=== PATIENT | female | born 1985 | race Caucasian/White ===

== ENCOUNTER 2019-07-24 18:47 | Emergency (ER) | payer OTHER, SELFPAY ==
[2019-07-24 19:11] VITALS: BP 134/90; PULSE 84; RESP 14; TEMP 36.7; O2SAT 100
--- NOTE | 2019-07-24 19:26 | ED.GENADULT ---
HPI - General Adult General Chief complaint: Urogenital-Female Stated complaint: frequent urination Time Seen by Provider: 07/24/19 19:26 Source: patient and RN notes reviewed Mode of arrival: ambulatory Limitations: no limitations History of Present Illness HPI narrative: This is a 33 years old female presented office for evaluation of urinary frequency and urgency 20 minutes after she got influenza vaccines. Onset yesterday.Symptom has not subsided at all today. Denies hives, feeling ill, nauseous or vomiting. She never had a flu shot in the past.She took Azo for her symptoms with no relief. Related Data Home Medications Medication Instructions Recorded Confirmed clonazepam [Klonopin] 0.5 mg PO HS 07/24/19 07/24/19 phentermine 15 mg PO DAILY 07/24/19 07/24/19 Allergies Allergy/AdvReac Type Severity Reaction Status Date / Time metoclopramide Allergy Severe swelling Verified 07/24/19 19:20 in hands and face Review of Systems Review of Systems: Narrative: CONSTITUTIONAL: Denies fever ENT: Denies congestion CARDIOVASCULAR: Denies chest pain RESPIRATORY: Denies cough GASTROINTESTINAL: Denies abdominal pain, nausea, vomiting, diarrhea. GENITOURINARY: Denies discharge. Reports urinary frequency and urgency. denies hematuria or dysuria SKIN: Denies rash MUSCULOSKELETAL: Denies acute back pain NEUROLOGIC: Denies numbness, or focal weakness. PMFSH Comments At time of signature, I agree with nursing past medical, surgical, social and family history. There is no relevant family history pertinent to the presenting complaint. Exam Narrative: Exam Narrative: GENERAL: This is a well-nourished, well-developed patient, in no apparent distress. THROAT: Mucous membranes moist, posterior pharynx clear. NECK: Neck supple, non-tender without lymphadenopathy, masses or thyromegaly. CARDIOVASCULAR: Regular rate and rhythm without murmurs, gallops, or rubs. RESPIRATORY: Clear to auscultation. Breath sounds equal bilaterally. No wheezes, rales, or rhonchi. GASTROINTESTINAL: Abdomen soft, non-tender, nondistended. Bowel sounds are active. No hepato-splenomegaly, or palpable masses. No guarding. SKIN: warm, intact with no suspicious lesions or rash, good texture and turgor. NEURO: awake, alert, and oriented to person, place and time. There were no obvious focal neurologic abnormalities. Steady gait BACK:No flank tenderness. [place] Coma Scale Eye Opening: Spontaneous 4 [place] Coma Scale Motor: Obeys Commands 6 [place] Coma Scale Verbal: Oriented 5 Course Vital Signs Vital signs: Vital Signs Temperature 98.1 F 07/24/19 19:11 Pulse Rate 84 07/24/19 19:11 Respiratory Rate 14 07/24/19 19:11 Blood Pressure 134/90 07/24/19 19:11 Pulse Oximetry 100 07/24/19 19:11 Temperature 98.1 F 07/24/19 19:11 Pulse Rate 84 07/24/19 19:11 Respiratory Rate 14 07/24/19 19:11 Blood Pressure 134/90 07/24/19 19:11 Pulse Oximetry 100 07/24/19 19:11 Medical Decision Making MDM Narrative Medical decision making narrative: Urine dipstick is unreliable due to patient Azo, however I will go ahead and cover her with antibiotic for possible UTI based on patient's symptoms. I also put patient on Flomax to see if it helps reduce her urinary frequency and urgency. Differential Diagnosis Differential Diagnosis: Cystitis, Nephrolithiasis, Nephritis,vaginitis, pyelonephritis Vital Signs Vital Signs: Vital Signs Temperature 98.1 F 07/24/19 19:11 Pulse Rate 84 07/24/19 19:11 Respiratory Rate 14 07/24/19 19:11 Blood Pressure 134/90 07/24/19 19:11 Pulse Oximetry 100 07/24/19 19:11 Temperature 98.1 F 07/24/19 19:11 Pulse Rate 84 07/24/19 19:11 Respiratory Rate 14 07/24/19 19:11 Blood Pressure 134/90 07/24/19 19:11 Pulse Oximetry 100 07/24/19 19:11 Lab Data Lab results reviewed: Yes I reviewed the patient's lab results. Labs: Urine Glucose Trace *
== END 2019-07-24 19:47 | disposition home or self-care (01) ==
PROVIDERS: Emergency Provider Nurse Practitioner; PCP Family Medicine
DX: R35.0 Frequency of micturition (principal); R03.0 Elevated blood-pressure reading, without diagnosis of hypertension; F41.9 Anxiety disorder, unspecified
CPT/HCPCS: 81003; 87086; 99213; G0463

== ENCOUNTER 2019-12-05 07:32 | Outpatient (CLI) | payer OTHER, SELFPAY ==
[2019-12-05 08:18] LABS: Hematocrit 39.9 % (37.0-47.0); Hemoglobin 13.2 g/dL (12.0-15.0); Mean Corpuscular HGB Conc 33.1 g/dl (32-36); Mean Corpuscular Hemoglobin 28.5 pg (26-34); Mean Corpuscular Volume 86.2 fl (80-100); Mean Platelet Volume 11.3 fl (7.4-10.4); Platelet Count Result 220 k/mm3 (150-375); Red Blood Count 4.63 M/mm3 (4.2-5.4); Red Cell Distribution Width 13.2 % (11.5-14.5); White Blood Count 5.9 K/mm3 (4.5-10.0)
[2019-12-05 08:30] LABS: Alanine Aminotransferase 33 U/L (4-35); Albumin Level 4.3 g/dL (3.5-5.1); Alkaline Phosphatase 65 U/L (38-126); Aspartate Amino Transferase 28 U/L (14-36); Bilirubin,Total 0.4 mg/dL (0.2-1.3); Blood Urea Nitrogen 15 mg/dL (7-17); Carbon Dioxide 29 mmol/L (22-30); Chloride 103 mmol/L (98-107); Cholesterol 204 mg/dL (0-200); Estimated Glomerular Filt Rate > 60; Glucose 110 mg/dL (65-105); HDL Direct 68 mg/dL; Potassium 4.2 mmol/L (3.4-5.0); Sodium 135 mmol/L (137-145); Triglycerides 97 mg/dL (<150)
[2019-12-05 08:41] LABS: LDL Cholesterol Direct 105 mg/dL
[2019-12-05 09:00] LABS: Free T4 Free Thyroxine 1.05 ng/mL (0.78-2.19)
== END 2019-12-05 07:33 | disposition home or self-care (01) ==
PROVIDERS: PCP Family Medicine; Visit Provider Physician Assistant
DX: R53.83 Other fatigue (principal); Z13.1 Encounter for screening for diabetes mellitus; Z13.220 Encounter for screening for lipoid disorders
CPT/HCPCS: 36415; 80053; 80061; 84439; 84443; 85027

== ENCOUNTER 2020-02-25 11:55 | Emergency (ER) | payer OTHER, SELFPAY ==
[2020-02-25 12:02] VITALS: BP 126/84; PULSE 69; RESP 18; TEMP 37.4; O2SAT 100
--- NOTE | 2020-02-25 12:08 | PC.NURSE ---
PT DECLINES ICE FOR COMFORT
--- NOTE | 2020-02-25 13:04 | ED.UPPEXIN ---
HPI - Extremity Injury (Upper) General Chief Complaint: Extremity Injury, Upper Stated Complaint: Right fingernails lifted Time Seen by Provider: 02/25/20 13:04 Source: patient and RN notes reviewed Mode of arrival: ambulatory Limitations: no limitations History of Present Illness HPI narrative: 34 year old female who presents to [facility] care with complaints of injury to her right 3rd and 4th fingernails. Patient states that she was playing in river with her kids and she picked up a bucket of water and threw it causing her finger nails on right 3rd and 4th fingers to bend back. Patient has dipped nails and her right 4th fingernail broke off to the edge of her fingertip and 3rd right fingernail has some of nail avulsed but not as far back as the 4th nail. She states pain to her fingers, rates her discomfort as 6/10 and throbbing with some stated swelling to her fingers reported. MD complaint: injury to: right and finger (nails to right 3rd and 4th fingers) Onset (ago): day(s) (occurred yesterday) Other injuries: none Handedness: right Place: outdoors Severity: moderate Severity scale (1-10): 6 Relieving factors: none Exacerbating factors: other (palpation) Context: injury Associated symptoms: denies other symptoms Treatments prior to arrival: NSAIDS Related Data Home Medications Medication Instructions Recorded Confirmed sertraline 50 mg PO DAILY 02/25/20 02/25/20 Allergies Allergy/AdvReac Type Severity Reaction Status Date / Time metoclopramide Allergy Severe swelling Verified 02/28/20 12:25 in hands and face Review of Systems Review of Systems: Narrative: CONSTITUTIONAL: Denies fever, chills, or sweats. EYES: Denies visual changes, redness, or discharge. ENT: Denies rhinorrhea, congestion, sore throat, or otalgia. CARDIOVASCULAR: Denies chest pain, palpitations, or edema. RESPIRATORY: Denies cough or dyspnea. GASTROINTESTINAL: Denies abdominal pain, nausea, vomiting, or diarrhea. GENITOURINARY: Denies dysuria or hematuria. SKIN: Denies rash or itching. Patient has avulsed fingernails right 3rd and 4th fingers with pain, no bleeding noted. MUSCULOSKELETAL: Denies back pain, joint pain, or myalgia. NEUROLOGIC: Denies headache, numbness, or weakness. PSYCHIATRIC: Denies anxiety or depression. All systems reviewed & are unremarkable except as noted in HPI and below PMFSH Past Medical History Medical History (Updated 02/29/20 @ 09:17 by Suzie Santacruz NP) Anxiety and depression Bipolar 2 disorder Surgical History Surgical History (Updated 02/29/20 @ 08:28 by Suzie Santacruz NP) Previous section S/P wisdom tooth extraction Family History Family History (Updated 02/29/20 @ 08:29 by Suzie Santacruz NP) Grandparent Diabetes mellitus Hypertension Social History Social History (Updated 02/29/20 @ 08:30 by Suzie Santacruz NP) Smoking status: Never smoker Living arrangements: with family Gender identity (if verbalized by the patient): Female Comments At time of signature, agree with nursing past medical, surgical, social and family history. There is no relevant family history pertinent to the presenting complaint Exam Narrative: Exam Narrative: GENERAL: Well-appearing, well-nourished, and in no acute distress. HEAD: Normocephalic, atraumatic. EYES: PERRLA and EOMI. ENT: Nares clear, no rhinorrhea or epistaxis. Mucous membranes moist. NECK: Supple. CHEST: Clear to auscultation. No respiratory distress.SAO2 100% on room air HEART: Regular rate and rhythm. No murmur heard. Normal peripheral pulses. ABDOMEN: Soft, nontender, nondistended, normal active bowel sounds. EXTREMITIES: Normal range of motion. No edema. SKIN: Warm, dry, no rash, Nail avulsion to right 3rd and 4th finger nails with 4th nail broken back to edge of fingertip with red tissue noted no bleeding. 3rd nail avulsion noted but minimal and not as far back. Patient voices pain to both fingers distally. NEURO:
== END 2020-02-25 13:25 | disposition home or self-care (01) ==
PROVIDERS: Emergency Provider Registered Nurse; PCP Family Medicine
DX: S69.91XA Unspecified injury of right wrist, hand and finger(s), initial encounter (principal); X58.XXXA Exposure to other specified factors, initial encounter
CPT/HCPCS: 29130; 99213; G0463

== ENCOUNTER 2020-03-19 12:04 | Outpatient (CLI) | payer OTHER, SELFPAY ==
[2020-03-19 12:28] LABS: Hemoglobin A1C 5.2 % (<5.7)
[2020-03-19 12:34] LABS: Alanine Aminotransferase 33 U/L (4-35); Albumin Level 4.3 g/dL (3.5-5.1); Alkaline Phosphatase 68 U/L (38-126); Anion Gap 8 mmol/L (8-16); Aspartate Amino Transferase 32 U/L (14-36); Bilirubin,Total 0.4 mg/dL (0.2-1.3); Blood Urea Nitrogen 15 mg/dL (7-17); Calcium 9.4 mg/dL (8.4-10.2); Carbon Dioxide 29 mmol/L (22-30); Chloride 102 mmol/L (98-107); Estimated Glomerular Filt Rate > 60; Glucose 99 mg/dL (65-105); Potassium 4.3 mmol/L (3.4-5.0); Sodium 139 mmol/L (137-145)
== END 2020-03-19 12:05 | disposition home or self-care (01) ==
PROVIDERS: PCP Family Medicine; Visit Provider Family Medicine
DX: R73.03 Prediabetes (principal)
CPT/HCPCS: 36415; 80053; 83036

== ENCOUNTER 2020-03-26 17:48 | Outpatient (CLI) | payer OTHER, SELFPAY ==
--- NOTE | ~2020-03-26 | XR_ITS ---
EXAMINATION: XR ankle LT min 3V DATE: 03/26/2020 18:10 INDICATION: Medial left ankle pain 2 days post running. TECHNIQUE: Anteroposterior, oblique, mortise, and lateral views of the left ankle were obtained. COMPARISON: None. FINDINGS: Alignment is normal. No fracture. Joint spaces are well maintained. Bone islands at the base of the first metatarsal and at the posterior calcaneus. The soft tissues are unremarkable no definitive ankl e joint effusion.. IMPRESSION: 1. A couple benign bone islands. Otherwise unremarkable left ankle radiographs.. Reviewed, dictated and finalized at location A. IMPRESSION: 1. A couple benign bone islands. Otherwise unremarkable left ankle radiographs. .
== END 2020-03-26 17:49 | disposition home or self-care (01) ==
PROVIDERS: PCP Family Medicine; Visit Provider Family Medicine
DX: M25.579 Pain in unspecified ankle and joints of unspecified foot (principal); M89.9 Disorder of bone, unspecified
CPT/HCPCS: 73610

== ENCOUNTER → 2020-05-07 09:47 | Outpatient (CLI) | payer OTHER, SELFPAY ==
--- NOTE | ~2020-05-07 | XR_ITS ---
XR foot RT min 3V DATE: 05/07/2020 10:07 INDICATION: Fell off of steps sideways. Anterior and lateral pain and swelling of third through fifth digits TECHNIQUE: 4 views COMPARISON: 01/06/2019 right foot FINDINGS: No recent fracture or dislocation, periosteal reaction or bone destruction is detected. IMPRESSION: No recent fracture Reviewed, dictated and finalized at location B. FILER IMPRESSION: No recent fracture
== END ==
PROVIDERS: PCP Family Medicine; Visit Provider Family Medicine
DX: S99.929A Unspecified injury of unspecified foot, initial encounter (principal)
CPT/HCPCS: 73630

== ENCOUNTER 2020-05-27 13:43 | Outpatient (CLI) | payer OTHER, SELFPAY ==
[2020-05-27 14:07] LABS: Basophils Percent Auto 0.5 % (0.2-1.2); Eosinophils Absolute Auto 0.1 K/mm3 (0-0.3); Eosinophils Percent Auto 1.4 % (0-4.4); Hematocrit 37.6 % (37.0-47.0); Hemoglobin 12.4 g/dL (12.0-15.0); Immature Granulocyte Absolute 0.02 K/mm3 (0.00-0.031); Immature Granulocyte Percent A 0.3 % (0-0.5); Lymphocytes Absolute Auto 1.65 K/mm3 (0.9-3.2); Mean Corpuscular Hemoglobin 28.3 pg (26-34); Mean Corpuscular Volume 85.8 fl (80-100); Mean Platelet Volume 11.2 fl (7.4-10.4); Monocytes Absolute Auto 0.5 K/mm3 (0.1-0.6); Monocytes Percent Auto 8.2 % (2.6-8.5); Neutrophils Absolute Auto 4.3 K/mm3 (1.3-6.7); Neutrophils Percent Auto 64.6 % (45.5-73.1); Platelet Count Result 245 k/mm3 (150-375); Red Blood Count 4.38 M/mm3 (4.2-5.4); Red Cell Distribution Width 12.6 % (11.5-14.5); White Blood Count 6.6 K/mm3 (4.5-10.0)
[2020-05-27 14:20] LABS: Rheumatoid Factor < 8.6 IU/ML (<12)
[2020-05-27 14:21] LABS: CRP 0.6 mg/dL (<1.0)
[2020-05-27 14:45] LABS: Erythrocyte Sedimentation Rate 14 mm/hr (0-20)
[2020-05-29 22:13] LABS: Anti Cyclic Citrullinated Pept <16 Units (<20)
== END 2020-05-27 13:44 | disposition home or self-care (01) ==
PROVIDERS: PCP Family Medicine; Visit Provider Orthopaedic Surgery
DX: M06.9 Rheumatoid arthritis, unspecified (principal)
CPT/HCPCS: 36415; 85025; 85652; 86038; 86140; 86200; 86430

== ENCOUNTER 2020-06-03 16:52 | Outpatient (CLI) | payer OTHER, SELFPAY ==
[2020-06-03 17:09] LABS: Add Urine Microscopic? YES; Appearance Urine Clear (Clear); Bacteria Urine Trace /hpf; Bilirubin Urine Negative (Negative); Blood Urine 1+ (Negative); Color Urine Yellow (Yellow); Glucose Urine UA Negative (Negative); Ketones Urine Negative (Negative); Leukocyte Esterase Ur Negative LEU/UL (Negative); Mucus Urine Rare /lpf; Nitrate Urine Negative (Negative); Protein Urine Negative (Negative); RBC Urine 0-2 /hpf (0-2); Specific Grav Ur 1.025 (1.001-1.035); Squamous Epithelial Cell Urine Moderate /hpf (Few); Urobilinogen Urine Negative mg/dL (<2.0); WBC Urine 0-3 /hpf
== END 2020-06-03 16:53 | disposition home or self-care (01) ==
LOC: ANHLAB 16:54
PROVIDERS: PCP Family Medicine; Visit Provider Family Medicine
DX: R35.0 Frequency of micturition (principal)
CPT/HCPCS: 81001

== ENCOUNTER 2020-06-12 07:21 | Outpatient (CLI) | payer OTHER, SELFPAY ==
[2020-06-12 08:07] LABS: Alanine Aminotransferase 28 U/L (4-35); Albumin Level 4.1 g/dL (3.5-5.1); Alkaline Phosphatase 59 U/L (38-126); Anion Gap 7 mmol/L (8-16); Aspartate Amino Transferase 25 U/L (14-36); Bilirubin,Total 0.4 mg/dL (0.2-1.3); Blood Urea Nitrogen 14 mg/dL (7-17); Carbon Dioxide 27 mmol/L (22-30); Chloride 104 mmol/L (98-107); Estimated Glomerular Filt Rate > 60; Glucose 100 mg/dL (65-105); Sodium 138 mmol/L (137-145)
== END 2020-06-12 07:22 | disposition home or self-care (01) ==
PROVIDERS: PCP Family Medicine; Visit Provider Physician Assistant
DX: R73.9 Hyperglycemia, unspecified (principal)
CPT/HCPCS: 36415; 80053; 83036

== ENCOUNTER 2020-09-15 13:49 | Outpatient (CLI) | payer OTHER, SELFPAY ==
[2020-09-15 15:08] LABS: Iron 63 ug/dL (37-170)
[2020-09-15 15:17] LABS: Percent Iron Saturation 21 % (20-50)
[2020-09-15 15:26] LABS: Free T4 Free Thyroxine 0.87 ng/mL (0.78-2.19)
[2020-09-15 15:37] LABS: Folic Acid 10.3 ng/mL (2.76->20)
[2020-09-15 15:52] LABS: Erythrocyte Sedimentation Rate 8 mm/hr (0-20)
[2020-09-15 15:53] LABS: Vitamin D 25 Hydroxy 54.3 ng/mL
== END 2020-09-15 13:50 | disposition home or self-care (01) ==
PROVIDERS: PCP Physician Assistant; Visit Provider Physician Assistant
DX: R53.83 Other fatigue (principal)
CPT/HCPCS: 36415; 82306; 82607; 82746; 83540; 83550; 84439; 84443; 85652

== ENCOUNTER 2020-09-30 14:29 | Outpatient (CLI) | payer OTHER, SELFPAY ==
[2020-09-30 15:23] LABS: Influenza Control Positive
== END 2020-09-30 14:30 | disposition home or self-care (01) ==
PROVIDERS: PCP Physician Assistant; Visit Provider Physician Assistant
DX: R50.9 Fever, unspecified (principal); J02.9 Acute pharyngitis, unspecified
CPT/HCPCS: 87081; 87804; 87880

== ENCOUNTER 2020-10-30 11:45 | Outpatient (CLI) | payer OTHER, SELFPAY ==
--- NOTE | ~2020-10-30 | CT_ITS ---
EXAMINATION: CT sinus wo con DATE: 10/30/2020 12:18 INDICATION: Congestion and chronic sinusitis for 3 months TECHNIQUE: Computed tomography (CT) of the paranasal sinuses was performed without contrast. Iterativ e reconstruction technique was employed. Exam dose: 273.54 mGy-cm total exam DLP. COMPARISON: None FINDINGS: There is leftward deviation of the nasal septum. There is asymmetric prominence of the right middle and inferior nasal turbinates. Bilateral intralamellar cell of middle nasal turbinates. Ostiomeatal units are patent bilaterally. There is minimal development of the frontal sinuses. The ethmoid air cells, maxillary and sphenoid si nuses are clear. Normal development and aeration of the mastoid air cells bilaterally. Middle and inner ear apparatus appear normal bilaterally. IMPRESSION: Leftward deviation of nasal septum Asymmetric enlargement of right middle and inferior nasal turbinates Bilateral intralamellar cell of middle nasal turbinates Patent paranasal sinuses, ostiomeatal units and mastoid air cells Reviewed, dictated and finalized at Location A. Reviewed, dictated and finalized at location A.
== END 2020-10-30 11:46 | disposition home or self-care (01) ==
PROVIDERS: PCP Physician Assistant; Visit Provider Allergy & Immunology
DX: J31.0 Chronic rhinitis (principal); J34.2 Deviated nasal septum; J34.3 Hypertrophy of nasal turbinates
CPT/HCPCS: 70486

== ENCOUNTER → 2020-11-12 12:07 | Outpatient (CLI) | payer OTHER, SELFPAY ==
--- NOTE | ~2020-11-12 | US_ITS ---
EXAMINATION: US pelvic complete w TV DATE: 11/12/2020 12:35 INDICATION: History of cysts. Polycystic ovarian syndrome. Comparison:No prior studies for comparison. TECHNIQUE: Multiple transabdominal and endovaginal sonographic images of the pelvis performed. FINDINGS: The uterus measures 10 x 4.4 x 5.8 cm. The endometrial complex measures 9 mm. The right ovary measures 2.6 x 2 x 2.3 cm and the left ovary is not visualized. Normal Doppler signal in the right ovary. There is a questionable hypoechoic structure adjacent to the right ovary, althou gh this is obscured by overlying bowel. There is no free fluid in the pelvis. There are no abnormal masses seen on either side. IMPRESSION: 1. Possible hypoechoic mass adjacent to the right ovary, although this could represent normal bowel c ontent. Consider correlation with CT abdomen and pelvis. Otherwise, unremarkable pelvic ultrasound. Reviewed, dictated and finalized at location A. IMPRESSION: 1. Possible hypoechoic mass adjacent to the right ovary, although this could re present normal bowel content. Consider correlation with CT abdomen and pelvis. Otherwise, unremarkable pelvic ultrasound.
== END ==
PROVIDERS: Visit Provider Obstetrics & Gynecology
DX: N83.209 Unspecified ovarian cyst, unspecified side (principal)
CPT/HCPCS: 76830; 76856

== ENCOUNTER 2021-04-01 11:46 | Outpatient (CLI) | payer OTHER, SELFPAY ==
--- NOTE | ~2021-04-01 | XR_ITS ---
XR hip BI 2V w AP pelvis DATE: 04/01/2021 12:22 INDICATION: Hip pain TECHNIQUE: AP pelvis. AP and lateral views of each hip COMPARISON: None FINDINGS: No pelvic fracture. The pubic symphysis and sacroiliac joints are intact. No fracture or dislocation, avascular necrosis or bone destruction of either hip. Hip joint spaces ar e symmetric and relatively preserved. IMPRESSION: No significant abnormality Reviewed, dictated and finalized at location B. IMPRESSION: No significant abnormality
--- NOTE | ~2021-04-01 | XR_ITS ---
XR lumbar spine 6V w bending DATE: 04/01/2021 12:22 INDICATION: Low back pain TECHNIQUE: AP, lateral, coned lateral lumbosacral views. Flexion and extension lateral views. COMPARISON: None FINDINGS: Normal alignment of lumbar spine. No instability on flexion or extension. Lumbar and lumbos acral interspaces are well preserved. No fracture or bone destruction, spondylolysis or spondylolisth esis. The lumbar pedicles are intact. The sacroiliac joints are normal. IMPRESSION: Negative Reviewed, dictated and finalized at location B. IMPRESSION: Negative
== END 2021-04-01 11:47 | disposition home or self-care (01) ==
LOC: ANHIMG 11:52
PROVIDERS: PCP Physician Assistant; Visit Provider Physician Assistant
DX: M25.559 Pain in unspecified hip (principal); M54.50 Low back pain, unspecified
CPT/HCPCS: 72114; 73521

== ENCOUNTER 2021-05-03 11:14 | Emergency (ER) | payer OTHER, SELFPAY ==
[2021-05-03 11:20] VITALS: BP 132/95; PULSE 93; RESP 16; TEMP 35.8; O2SAT 99
--- NOTE | 2021-05-03 12:24 | ED.GENADULT ---
HPI - General Adult General Chief complaint: Urogenital-Female Stated complaint: right flank pain Time Seen by Provider: 05/03/21 12:14 Source: RN notes reviewed History of Present Illness HPI narrative: Patient presents emergency department from home for right flank pain. Patient states symptoms began approximately 4 days ago. Pain is located in the right flank and radiates around to the right lower abdomen described as sharp and stabbing in nature and patient states that even anything touching the overlying skin is painful. States is associated nausea. She denies any fevers or chills chest pain shortness of breath vomiting diarrhea or any other symptoms. States that she did have a very small patch of erythema occur on his right side of the abdomen starting yesterday patient states that she was seen at [facility] approximately 4 days ago and at that time had blood work and a CT scan done the CT showed no acute process the patient did bring a copy of that CT scan with her lab results were within normal limits the patient was sent home on Bactrim for possible UTI as well as Toradol and then her primary care physician had called in [place] for her with her last dose of [place] at 3 AM Related Data Allergies Allergy/AdvReac Type Severity Reaction Status Date / Time metoclopramide Allergy Severe swelling Verified 03/16/21 08:34 in hands and face clavulanic acid AdvReac Mild Nausea Verified 03/16/21 08:34 methylprednisolone AdvReac Mild Insomnia Verified 03/16/21 08:34 [From Medrol] Review of Systems Review of Systems: Gen.: Denies fevers or chills ENT: Denies congestion Respiratory: Denies shortness of breath or cough CV: Denies chest pain or palpitations GI: See HPI denies burning, urgency, frequency or hematuria Musculoskeletal: Denies back pain or muscle pain Neuro: Denies numbness, tingling, weakness or focal weakness Skin: Denies rash Except as documented, all other systems reviewed and negative [facility] Past Medical History Medical History Anxiety Anxiety and depression Bipolar 2 disorder Chronic headaches GERD (gastroesophageal reflux disease) Hallux valgus of right foot Light headedness Rheumatoid arthritis involving ankle Surgical History Surgical History Previous section x2, 2007,2009 S/P wisdom tooth extraction Family History Family History Grandparent Diabetes mellitus Hypertension Mother Family history of rheumatoid arthritis Father Family history of coronary artery disease, Onset Age: 47 Patient's father is Grandparent Family history of type 2 diabetes mellitus Social History Social History Smoking status: Never smoker Gender identity (if verbalized by the patient): Female Exam Narrative: APPEARANCE: No acute distress, nontoxic, resting in bed HEENT: Normocephalic, atraumatic, OMM RESPIRATORY: No respiratory distress, clear to auscultation bilaterally with no rhonchi wheezing or rales CARDIOVASCULAR: RRR s murmur ABDOMINAL: Soft nondistended tender to palpation in the right upper and lower quadrant no tenderness left upper and left lower quadrant, mild right flank tenderness no rebound or guarding tenderness over the skin in the region of the dermatome from right flank around to right abdomen of T10 MUSCULOSKELETAl: Moves all extremities. No clubbing, cyanosis or edema. NEURO: Awake and alert. Following commands, speech normal, no focal deficits SKIN:: Warm, dry. In the right lateral abdomen in the same dermatome as the patient's pain there is a patch of erythema no definitive vesicles at this time PSYCHIATRIC: Normal affect/mood Course Course Emergency Course: Discussed with patient results of workup and diagnosi
[2021-05-03 12:25] LABS: Add Urine Microscopic? YES; Appearance Urine Cloudy (Clear); Bacteria Urine 4+ /hpf; Bilirubin Urine Negative (Negative); Blood Urine 1+ (Negative); Color Urine Yellow (Yellow); Glucose Urine UA Negative (Negative); Ketones Urine Negative (Negative); Leukocyte Esterase Ur Negative LEU/UL (Negative); Mucus Urine Rare /lpf; Nitrate Urine Negative (Negative); Protein Urine Negative (Negative); RBC Urine 0-2 /hpf (0-2); Specific Grav Ur 1.015 (1.001-1.035); Squamous Epithelial Cell Urine Many /hpf (Few); Urobilinogen Urine Negative mg/dL (<2.0); WBC Urine 0-3 /hpf
[2021-05-03] MEDS: ONDANSETRON INJ 4 MG/2 ML VIAL IV PUSH (12:47)
[2021-05-03] MEDS: MORPHINE SULFATE (*CRX) 4 MG/ML INJ IV PUSH (12:47)
[2021-05-03] MEDS: SODIUM CHLORIDE 0.9% IV 1,000 ML 999 ML IV CONT (12:48)
[2021-05-03 12:51] LABS: Basophils Percent Auto 0.5 % (0.2-1.2); Eosinophils Absolute Auto 0.1 K/mm3 (0-0.3); Eosinophils Percent Auto 1.2 % (0-4.4); Hematocrit 39.7 % (37.0-47.0); Hemoglobin 13.3 g/dL (12.0-15.0); Immature Granulocyte Absolute 0.01 K/mm3 (0.00-0.031); Immature Granulocyte Percent A 0.2 % (0-0.5); Lymphocytes Absolute Auto 1.53 K/mm3 (0.9-3.2); Lymphocytes Percent Auto 26.5 % (18.3-44.2); Mean Corpuscular HGB Conc 33.5 g/dl (32-36); Mean Corpuscular Hemoglobin 28.8 pg (26-34); Mean Corpuscular Volume 85.9 fl (80-100); Mean Platelet Volume 11.1 fl (7.4-10.4); Monocytes Absolute Auto 0.5 K/mm3 (0.1-0.6); Monocytes Percent Auto 7.8 % (2.6-8.5); Neutrophils Absolute Auto 3.7 K/mm3 (1.3-6.7); Neutrophils Percent Auto 63.8 % (45.5-73.1); Platelet Count Result 218 k/mm3 (150-375); Red Blood Count 4.62 M/mm3 (4.2-5.4); Red Cell Distribution Width 12.7 % (11.5-14.5); White Blood Count 5.8 K/mm3 (4.5-10.0)
[2021-05-03 12:55] VITALS: BP 133/85; PULSE 76; RESP 16; O2SAT 98
[2021-05-03 13:01] VITALS: BP 140/85; PULSE 70; RESP 16; O2SAT 98
[2021-05-03 13:02] LABS: Alanine Aminotransferase 27 U/L (4-35); Albumin Level 4.4 g/dL (3.5-5.1); Alkaline Phosphatase 68 U/L (38-126); Anion Gap 9 mmol/L (8-16); Aspartate Amino Transferase 26 U/L (14-36); Bilirubin,Total 0.4 mg/dL (0.2-1.3); Blood Urea Nitrogen 13 mg/dL (7-17); Calcium 9.1 mg/dL (8.4-10.2); Carbon Dioxide 24 mmol/L (22-30); Chloride 104 mmol/L (98-107); Estimated CRCL calculation 91 ml/min; Estimated Glomerular Filt Rate > 60; Glucose 100 mg/dL (65-110); Lipase 57 U/L (23-300); Potassium 4.1 mmol/L (3.4-5.0); Sodium 137 mmol/L (137-145)
[2021-05-03] MEDS: valACYclovir HCL 500 MG TABLET 1000 MG PO (13:36)
[2021-05-03 13:45] VITALS: BP 121/75; PULSE 75; RESP 18; O2SAT 100
== END 2021-05-03 13:45 | disposition home or self-care (01) ==
PROVIDERS: Emergency Medicine; Emergency Provider Emergency Medicine; PCP Physician Assistant
DX: B02.9 Zoster without complications (principal); F41.9 Anxiety disorder, unspecified; F31.81 Bipolar II disorder; M06.9 Rheumatoid arthritis, unspecified
CPT/HCPCS: 36415; 80053; 81001; 81025; 83690; 85025; 96361; 96374; 96375; 99284; A9270; J2270; J2405; J7030

== ENCOUNTER 2021-08-01 07:08 | Outpatient (CLI) | payer OTHER, SELFPAY ==
[2021-08-01 07:36] LABS: Basophils Percent Auto 0.4 % (0.2-1.2); Eosinophils Absolute Auto 0.2 K/mm3 (0-0.3); Eosinophils Percent Auto 2.7 % (0-4.4); Hematocrit 38.2 % (37.0-47.0); Hemoglobin 12.4 g/dL (12.0-15.0); Immature Granulocyte Absolute 0.01 K/mm3 (0.00-0.031); Immature Granulocyte Percent A 0.2 % (0-0.5); Lymphocytes Absolute Auto 1.46 K/mm3 (0.9-3.2); Lymphocytes Percent Auto 26.7 % (18.3-44.2); Mean Corpuscular HGB Conc 32.5 g/dl (32-36); Mean Corpuscular Hemoglobin 28.8 pg (26-34); Mean Corpuscular Volume 88.8 fl (80-100); Mean Platelet Volume 10.8 fl (7.4-10.4); Monocytes Absolute Auto 0.5 K/mm3 (0.1-0.6); Monocytes Percent Auto 8.2 % (2.6-8.5); Neutrophils Absolute Auto 3.4 K/mm3 (1.3-6.7); Neutrophils Percent Auto 61.8 % (45.5-73.1); Platelet Count Result 185 k/mm3 (150-375); Red Cell Distribution Width 13.5 % (11.5-14.5); White Blood Count 5.5 K/mm3 (4.5-10.0)
[2021-08-01 07:48] LABS: Alanine Aminotransferase 53 U/L (4-35); Albumin Level 3.9 g/dL (3.5-5.1); Alkaline Phosphatase 67 U/L (38-126); Anion Gap 1 mmol/L (8-16); Aspartate Amino Transferase 52 U/L (14-36); Bilirubin,Total 0.5 mg/dL (0.2-1.3); Blood Urea Nitrogen 16 mg/dL (7-17); Calcium 8.9 mg/dL (8.4-10.2); Carbon Dioxide 27 mmol/L (22-30); Chloride 104 mmol/L (98-107); Estimated Glomerular Filt Rate > 60; Glucose 104 mg/dL (65-110); Potassium 3.7 mmol/L (3.4-5.0); Sodium 132 mmol/L (137-145)
[2021-08-01 07:50] LABS: Hemoglobin A1C 5.1 % (<5.7)
[2021-08-01 08:13] LABS: Vitamin D 25 Hydroxy 40.4 ng/mL
[2021-08-01 11:51] LABS: Iron 65 ug/dL (37-170)
[2021-08-01 12:00] LABS: Percent Iron Saturation 21 % (20-50)
[2021-08-01 12:09] LABS: Free T4 Free Thyroxine 1.01 ng/mL (0.78-2.19)
[2021-08-04 12:30] LABS: Insulin Level Total 6.8 uIU/mL (<=19.6); Thyroid Peroxidase Antibodies <1 IU/mL (<9)
[2021-08-04 17:56] LABS: DHEA-Sulfate 279 mcg/dL (23-266)
[2021-08-05 06:53] LABS: LH 13.7 mIU/mL (***); Progesterone 0.5 ng/mL (***); Prolactin 15.3 ng/mL (***); Triiodothyronine T3 Free 2.9 pg/mL (2.3-4.2)
[2021-08-05 14:18] LABS: Testosterone Free 4.7 pg/mL (0.1-6.4); Testosterone Total 82 ng/dL (2-45)
[2021-08-09 20:51] LABS: Estradiol, Ultrasensitive 56 pg/mL
== END 2021-08-01 07:09 | disposition home or self-care (01) ==
PROVIDERS: Internal Medicine Endocrinology, Diabetes & Metabolism; PCP Physician Assistant
DX: R53.83 Other fatigue (principal); N92.6 Irregular menstruation, unspecified; R73.03 Prediabetes
CPT/HCPCS: 36415; 80053; 82306; 82607; 82627; 82670; 82728; 82746; 83001; 83002; 83036; 83525; 83540; 83550; 84144; 84146; 84402; 84403; 84439; 84443; 84481; 85025; 86376

== ENCOUNTER 2021-08-04 10:58 | Outpatient (CLI) | payer OTHER, SELFPAY ==
--- NOTE | ~2021-08-04 | US_ITS ---
EXAMINATION: US thyroid DATE: 08/04/2021 11:38 INDICATION: Nontoxic goiter TECHNIQUE: Multiple ultrasound images of the thyroid were obtained. COMPARISON: None. FINDINGS: The right thyroid lobe measures 5.7 x 1.6 x 1.6 cm. The left thyroid lobe measures 5.6 x 1.8 x 1.3 c m. 5 mm solid wider than tall hypoechoic nodule with smooth margins and without echogenic foci. (TI- RADS 4, moderately suspicious , FNA if >=1.5 cm, annual followup is >=1 cm) at the inferior right thy roid. No other thyroid nodules identified. There is normal echotexture, echogenicity and vascular jazmin w throughout the thyroid gland. IMPRESSION: 1. 5 mm TI RADS 4 right thyroid nodule which remains below threshold for either biopsy or follow-up. Reviewed, dictated and finalized at location A. 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
== END 2021-08-04 10:59 | disposition home or self-care (01) ==
LOC: ANHIMG 11:02
PROVIDERS: PCP Physician Assistant; Visit Provider Internal Medicine Endocrinology, Diabetes & Metabolism
DX: E04.9 Nontoxic goiter, unspecified (principal)
CPT/HCPCS: 76536

== ENCOUNTER 2021-08-29 07:56 | Outpatient (CLI) | payer OTHER, SELFPAY ==
[2021-08-29 11:03] LABS: Cortisol Random 1.56 ug/dL
== END 2021-08-29 07:57 | disposition home or self-care (01) ==
PROVIDERS: Internal Medicine Endocrinology, Diabetes & Metabolism; PCP Physician Assistant
DX: R63.5 Abnormal weight gain (principal)
CPT/HCPCS: 36415; 82533

== ENCOUNTER 2021-09-04 07:41 | Outpatient (CLI) | payer OTHER, SELFPAY ==
[2021-09-04 09:23] LABS: Cortisol Random 7.63 ug/dL
[2021-09-09 14:43] LABS: Adrenocorticotropic Hormone 14 pg/mL (6-50)
== END 2021-09-04 07:42 | disposition home or self-care (01) ==
PROVIDERS: PCP Physician Assistant
DX: E24.9 Cushing's syndrome, unspecified (principal)
CPT/HCPCS: 36415; 82024; 82533

== ENCOUNTER → 2021-09-05 00:40 | Outpatient (CLI) | payer OTHER, SELFPAY ==
[2021-09-05 11:34] LABS: SARS-CoV-2 RNA PCR Negative
== END ==
PROVIDERS: PCP Physician Assistant; Visit Provider Plastic Surgery
DX: Z01.812 Encounter for preprocedural laboratory examination (principal); Z20.822 Contact with and (suspected) exposure to COVID-19
CPT/HCPCS: C9803; U0003; U0005

== ENCOUNTER 2021-09-05 08:25 | Outpatient (CLI) | payer OTHER, SELFPAY | END 2021-09-05 08:26 | disposition home or self-care (01) | PROVIDERS: PCP Physician Assistant | DX: E24.9 Cushing's syndrome, unspecified (principal) | CPT/HCPCS: 82530 ==

== ENCOUNTER 2021-09-07 09:13 | Outpatient (CLI) | payer OTHER, SELFPAY ==
[2021-09-15 19:30] LABS: Cortisol, Saliva <0.03 mcg/dL
[2021-09-15 19:30] LABS: Cortisol, Saliva 0.06 mcg/dL
== END 2021-09-07 09:14 | disposition home or self-care (01) ==
LOC: ANHLAB 09:23
PROVIDERS: PCP Physician Assistant
DX: E24.9 Cushing's syndrome, unspecified (principal)
CPT/HCPCS: 82530

== ENCOUNTER 2021-09-09 01:31 | Day surgery (SDC) | payer OTHER, SELFPAY ==
[2021-08-31 15:22] VITALS: BMI 36.5
--- NOTE | 2021-08-31 15:31 | PC.NURSE ---
Report to the Outpatient Waiting Room, entrance under the green pavilion located off [facility], at time __0600 on date __09/09/2021 . OR Time: _0730 . - You and your visitor will be asked a series of questions to screen for COVID 19 for your protection. - A mask is required within the hospital. Preoperative COVID Testing Requirements: No COVID Test needed if: (proof is required; if not received patient will have Rapid Test prior to entry) - Patient has received COVID Vaccine at least 14 days prior to procedure date or - Patient has positive COVID test result within last 90 days of surgery date. COVID Test needed if above criteria is not met If not COVID vaccinated a COVID test must be conducted within 72 hours of surgery and patient is asked to isolate self from time of testing until procedure. You will go to the [facility] for your COVID testing. The [facility] is located at the corner of [address] [facility]. COVID TEST 09/05/2021 @ 0925 You will only be called if COVID results are positive and your surgeon may reschedule your elective surgery date. Patients may have clear liquids (water, carbonated beverages, clear teas, apple juice) until 3 hours prior to surgery with a maximum of 20 ounces. - No food from midnight until time of surgery - Infants may have breast milk until 4 hours before surgery, infant formula 6 hours prior to surgery. - Children will be allowed to drink immediately following surgery. If applicable, please bring a bottle or sippy cup to assist with drinking. Juice, water, soda, and popsicles are readily available. For infants on formula, please bring formula the day of surgery. Pacifiers are allowed. Take the following medications with a SIP of water the morning of surgery: __NONE__(TAKE HS NORMAL ON 09/08/21) Medications to discontinue per physician Date to take last dose Please no make-up, nail yakut, hairspray, perfume, deodorant, or body powder the day of surgery. No jewelry (including any body piercings) or valuables the day of surgery, leave them at home. Please take a shower or bath the night before, or the morning of, surgery with an antibacterial soap. Wear comfortable, loose fitting clothing. Children are encouraged to wear pajamas. - Jewelry must be removed prior to entering the operating room. Rings and piercings that are not removed may be cut off. - The hospital will not accept responsibility for valuables. - Please leave all valuables, including medications, at home the day of surgery. If you are going home after surgery, a licensed horse and wagon driver must drive you home. - NO public transportation without another adult. - We recommend that an adult stay with you for 24 hours following discharge. - We also recommend that you do not drive, make important decision, drink alcoholic beverages, or take any drugs that were not prescribed by your health care provider for at least 24 hours after your discharge time. For Pediatric surgeries, we recommend two adults accompany the child home (only one inside the building at this time). One visitor will be allowed to accompany the patient into the hospital. Patients visitor will be instructed to remain with patient at all times or leave the building. We will allow the visitor to come back to the postoperative area when patient is ready. Follow any additional instructions given to you from your surgeon. Telephone instructions given to ___patient and asked if any additional questions and then verbalized understanding. Patient advised to call surgeon office or pre surgery nurse liaison [phone] if any additional questions.
[2021-09-09 05:59] VITALS: BP 138/85; PULSE 103; RESP 20; TEMP 36.3; O2SAT 100
[2021-09-09] MEDS: LACTATED RINGERS 1,000 ML 30 ML IV CONT (06:25)
--- NOTE | 2021-09-09 07:07 | WPDANESEPPF ---
Anes - Initial Pre Proc Eval Procedure: Operation Date: 09/09/21 07:30 Proposed Procedures p Excison of Left Dorsal Wrist Ganglion Cyst - Agustin Thomason MD Date/Time: 09/09/21 07:07 Surgeon: Agustin Thomason MD Pre Op Diagnosis: left wrist ganglion cyst Patient Data Age: 35 Gender: F Height: 1.66 m Weight: 101.05 kg Allergies Allergy/AdvReac Type Severity Reaction Status Date / Time metoclopramide Allergy Severe swelling Verified 09/09/21 06:03 in hands and face clavulanic acid AdvReac Mild Nausea Verified 09/09/21 06:03 Home Medications Medication Instructions Recorded Confirmed Type bupropion HCl 300 mg 24 hr tablet, 300 mg PO QAM #90 tablet 08/12/21 09/09/21 Rx extended release clonazepam 0.5 mg tablet 0.5 mg PO DAILY #60 tablet 08/14/21 09/09/21 Rx semaglutide 0.25 mg SUBCUT WEEKLY 08/17/21 09/09/21 History diphenoxylate-atropine 2.5 2 tablet PO QID PRN #40 tablet 08/19/21 09/09/21 Rx mg-0.025 mg tablet azelastine 1 spray INTRANASAL Q12H PRN 08/31/21 09/09/21 History cyclobenzaprine 10 mg tablet 10 mg PO .QHS PRN #30 tablet 08/31/21 09/09/21 Rx Patient hx anesthesia problems: post op nausea/vomiting Family hx anesthesia problems: none Results Review: All pre-operative results and documents have been reviewed as part of the pre-operative evaluation. COUNT INCLUDES THE [facility] Past Medical History Medical History Anxiety Anxiety and depression Bipolar 2 disorder Chronic headaches GERD (gastroesophageal reflux disease) Hallux valgus of right foot Light headedness Rheumatoid arthritis involving ankle Surgical History Surgical History Previous section x2, 2007,2009 S/P wisdom tooth extraction Family History Family History Grandparent Diabetes mellitus Hypertension Mother Family history of rheumatoid arthritis Father Family history of coronary artery disease, Onset Age: 47 Patient's father is Grandparent Family history of type 2 diabetes mellitus Social History Social History Smoking status: Never smoker Second hand tobacco smoke exposure: No Alcohol intake: never Substance use: never Living arrangements: with family Gender identity (if verbalized by the patient): Female 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ns: No Anes - Eval Final PreProcedure Day of Procedure 09/09/21 07:07 Patient weight: obese Heart: regular rate and rhythm Lungs: clear to auscultation Airway: Mallampati scale class II Neurological: alert and oriented Last oral intake: >/= 8 hours ASA classification: III Emergent: no Anesthetic plan: proceed Anesthesia type and monitoring: general GIVS and standard monitoring Other findings: no decadron Results Review: All pre-operative results and documents have been reviewed as part of the pre-operative evaluation. Informed Consent: The patient's anesthetic plan and its attendant risks and benefits were discussed with the patient/family/POA. Questions were solicited and answers provided to the satisfaction of the patient/family/POA.
[2021-09-09] MEDS: FAMOTIDINE 20 MG/2 ML VIAL IV PUSH (07:13)
[2021-09-09] MEDS: SCOPOLAMINE 1.5 MG PATCH TRANSDERM (07:16)
--- NOTE | 2021-09-09 07:56 | SUR.PREOP ---
0600-PT STATES SINCE INTERVIEW IS BEING EVALUATED FOR CUSHINGS AND IS NOT TO HAVE ANY STEROIDS. UNABLE TO ENTER STEROIDS IN ALLERGY/ADVERSE REACTION AREA OF EMR. NOTED ON SBAR AND WILL INFORM ROOM STAFF. 0710-DR. HARO AWARE OF ABOVE. 0720-ANILA WARNER RN CAKE MAKER AWARE OF ABOVE. 0735-PT AND AWARE DR. MEI DELAYS ARRIVAL ~25-30 .
--- NOTE | 2021-09-09 08:03 | WPDHPUPDATE1 ---
History and Physical Update Update Date/Time: 09/09/21 08:03 History and Physical has been reviewed, including an updated exam of the patient. There are NO changes in the patient's condition. Risks, benefits, and alternatives have been discussed and questions answered. Patient agrees to proceed with procedure.
--- NOTE | 2021-09-09 08:04 | SUR.PREOP ---
0800-DR. MEI AWARE OF CUSHINGS EVALUATION AND INABILITY TO HAVE STEROIDS AT THIS TIME.
[2021-09-09] MEDS: LIDO 1%/EPINEPHRINE/PF 1:200,000 30 ML VIAL 10 ML XX (08:34)
[2021-09-09 08:55] VITALS: BP 106/63; PULSE 101; RESP 12; O2SAT 94
--- NOTE | 2021-09-09 09:01 | P.OP_ITS ---
Procedure Note - Detailed Date of Procedure 09/09/21 Pre-op Diagnosis left wrist ganglion cyst Post-op Diagnosis Same Procedure Performed Excision of left dorsal wrist ganglion cyst Surgeon Agustin Thomason MD Anesthesia MAC Description of Procedure The site was marked on the patient's dorsal wrist in the preop area. She consented to that and she was then taken to the operating room and placed supine on the operating table. The extremity was prepped and draped in usual fashion. She was given IV sedation. Time-out was held and confirmed. The site was remarked and locally infiltrated with 1% lidocaine with epinephrine. The tourniquet was inflated to 250 mmHg. The transverse incision was made and diss ection was carried bluntly through the subcutaneous tissue past the extensor tendon group and the dome-shaped mass was identified immediately beneath that. This was a firm whitish round mass. It was firmly fixed to surrounding tissue. Sharp and blunt dissection revealed its origin at the wrist capsule. It was amputated at that level. Several small vascular structures were cauterized. The mass did not drained it was very fibrotic but consistent with chronic ganglion cyst type tissue. There was glistening gel noted here and there was no significant vascular supply to this the specimen was not sent to pathology. The wound was closed with 4-0 Monocryl in the subcutaneous tissue and 4-0 intradermal Monocryl. The usual bandage was applied the tourniquet was released and she is discharged from the operating room stable condition. She is being discharged home with instructions in wound care and follow-up and a prescription for hydrocodone 5/325 number 7. Estimated Blood Loss 1 Drains No Packing No Pathology None sent Complications No immediate complications Condition Stable Disposition Same day
[2021-09-09 09:25] VITALS: BP 104/71; PULSE 74; RESP 16
== END 2021-09-09 09:46 | disposition home or self-care (01) ==
PROVIDERS: PCP Physician Assistant; Visit Provider Plastic Surgery
PROC: (CPT 25111; principal; 2021-09-09 07:30)
DX: M67.432 Ganglion, left wrist (principal); M06.879 Other specified rheumatoid arthritis, unspecified ankle and foot; K21.9 Gastro-esophageal reflux disease without esophagitis; E28.2 Polycystic ovarian syndrome; F31.9 Bipolar disorder, unspecified; F41.9 Anxiety disorder, unspecified; E66.9 Obesity, unspecified; Z68.36 Body mass index [BMI] 36.0-36.9, adult
CPT/HCPCS: 25111; 82530; A9270; C9803; J2250; J2405; J2704; J3010; J7120; U0003; U0005

== ENCOUNTER 2021-10-07 06:13 | Outpatient (RCR) | payer OTHER, SELFPAY | END 2021-12-22 10:02 | disposition home or self-care (01) | LOC: ANHDMC 06:13 | PROVIDERS: PCP Physician Assistant; Visit Provider Nurse Practitioner | DX: R63.5 Abnormal weight gain (principal) | CPT/HCPCS: 99199 ==

== ENCOUNTER 2022-01-29 11:10 | Emergency (ER) | payer OTHER, SELFPAY ==
--- NOTE | ~2022-01-29 | CT_ITS ---
EXAMINATION: CT abdomen pelvis w con DATE: 01/29/2022 12:53 INDICATION: Abdominal pain. Nausea and vomiting. TECHNIQUE: Computed tomography (CT) of the abdomen and pelvis was performed with 100 mL Omnipaque 350 intravenous contrast. Automated exposure control and iterative reconstruction technique were employe d. The dose-length product was 656.27 mGy-cm. COMPARISON: None. FINDINGS: The visualized portions of the lung bases are clear without pneumonia or pleural effusion. The heart size is normal. No pericardial effusion. There is diffuse hepatic steatosis. The spleen, pa ncreas, gallbladder, adrenal glands, and right kidney are normal. There are cysts in left kidney pam uring up to 5 mm. There are no dilated loops of bowel. The appendix is normal. There are no pathologi lake enlarged lymph nodes. There is no free intraperitoneal fluid. There is mild thoracolumbar spond ylosis. IMPRESSION: 1. Diffuse hepatic steatosis. Reviewed, dictated and finalized at location A.
--- NOTE | 2022-01-29 11:33 | ED.GENADULT ---
HPI - General Adult General Chief complaint: Nausea/Vomiting/Diarrhea <Emi Sanchez PA-C - Last Filed: 01/29/22 17:40> Stated complaint: N/V x 4 days <Emi Sanchez PA-C - Last Filed: 01/29/22 17:40> Time Seen by Provider: 01/29/22 11:22 <Emi Sanchez PA-C - Last Filed: 01/29/22 17:40> History of Present Illness HPI narrative: Patient is a 36-year-old female with hx of PCOS here for evaluation of nausea and vomiting for the past 3 days. Patient states that she has been unable to keep any food or fluid down, and that she has had about 5 episodes of vomiting nonbloody/nonbilious emesis per day. Additionally notes a diffuse severe abdominal pain that has been constant in nature, worse after eating, most notable in her epigastric region. States this feels like a cramp. Last bowel movement was yesterday and was normal for her; denies any blood. No fevers, chills, shortness of breath, dysuria or urgency. She is on oral contraceptives, and her last menstrual cycle was 2 weeks ago. Has history of 2 C-sections but still has her appendix and gallbladder. Denies any alcohol or marijuana use. Home COVID test was negative. <Emi Sanchez PA-C - Last Filed: 01/29/22 17:40> Related Data Home medications: Home Medications Medication Instructions Recorded Confirmed semaglutide 0.25 mg or 0.5 mg (2 0.25 mg subcut WEEKLY 08/17/21 09/09/21 mg/1.5 mL) subcutaneous pen injector (Ozempic) azelastine 137 mcg (0.1 %) nasal 1 spray intranasal Q12H PRN SINUS 08/31/21 09/09/21 spray aerosol PROBLEMS <Emi Sanchez PA-C - Last Filed: 01/29/22 17:40> Allergies/adverse reactions: Allergies Allergy/AdvReac Type Severity Reaction Status Date / Time metoclopramide Allergy Severe swelling Verified 01/30/22 19:31 in hands and face clavulanic acid AdvReac Mild Nausea Verified 01/30/22 19:31 <Emi Sanchez PA-C - Last Filed: 01/29/22 17:40> Review of Systems Review of Systems: Gen: Denies fevers or chills Eyes: Denies eye pain or visual change ENT: Denies congestion Respiratory: Denies shortness of breath or cough CV: Denies chest pain or palpitations GI: Reports nausea, vomiting, abdominal pain : denies burning, urgency, frequency or hematuria Musculoskeletal: Denies back pain or muscle pain Neuro: Denies numbness, tingling, weakness or focal weakness Skin: Denies rash Except as documented, all other systems reviewed and negative <Emi Sanchez PA-C - Last Filed: 01/29/22 17:40> [facility] Past Medical History Medical History: Medical History Anxiety Anxiety and depression Bipolar 2 disorder Chronic headaches GERD (gastroesophageal reflux disease) Hallux valgus of right foot Light headedness Rheumatoid arthritis involving ankle <Emi Sanchez PA-C - Last Filed: 01/29/22 17:40> Surgical History Surgical History: Surgical History Previous section x2, 2007,2009 S/P wisdom tooth extraction <Emi Sanchez PA-C - Last Filed: 01/29/22 17:40> Family History Family History: Family History Grandparent Diabetes mellitus Hypertension Mother Family history of rheumatoid arthritis Father Family history of coronary artery disease, Onset Age: 47 Patient's father is Grandparent Family history of type 2 diabetes mellitus <Emi Sanchez PA-C - Last Filed: 01/29/22 17:40> Social History Social History: Social History Smoking status: Never smoker Second hand tobacco smoke exposure: No Alcohol intake: never Substance use: never Gender identity (if verbalized by the patient): Female 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
[2022-01-29 11:45] LABS: Basophils Percent Auto 0.5 % (0.2-1.2); Eosinophils Absolute Auto 0.1 K/mm3 (0-0.3); Eosinophils Percent Auto 0.7 % (0-4.4); Hematocrit 41.8 % (37.0-47.0); Hemoglobin 13.7 g/dL (12.0-15.0); Immature Granulocyte Absolute 0.02 K/mm3 (0.00-0.031); Immature Granulocyte Percent A 0.3 % (0-0.5); Lymphocytes Absolute Auto 1.21 K/mm3 (0.9-3.2); Lymphocytes Percent Auto 15.8 % (18.3-44.2); Mean Corpuscular HGB Conc 32.8 g/dl (32-36); Mean Corpuscular Hemoglobin 28.5 pg (26-34); Mean Corpuscular Volume 87.1 fl (80-100); Mean Platelet Volume 10.9 fl (7.4-10.4); Monocytes Absolute Auto 0.4 K/mm3 (0.1-0.6); Monocytes Percent Auto 5.7 % (2.6-8.5); Neutrophils Absolute Auto 5.9 K/mm3 (1.3-6.7); Platelet Count Result 272 k/mm3 (150-375); Red Cell Distribution Width 12.5 % (11.5-14.5); White Blood Count 7.7 K/mm3 (4.5-10.0)
[2022-01-29] MEDS: SODIUM CHLORIDE 0.9% IV 1,000 ML 999 ML IV CONT ×2 (11:51→13:55)
[2022-01-29] MEDS: FAMOTIDINE 20 MG/2 ML VIAL IV PUSH (11:51)
[2022-01-29] MEDS: ONDANSETRON INJ 4 MG/2 ML VIAL IV PUSH (11:51)
[2022-01-29 11:57] LABS: Magnesium 1.3 mg/dL (1.6-2.3); Phosphorus 2.4 mg/dL (2.5-4.5)
[2022-01-29 12:04] LABS: Alanine Aminotransferase 33 U/L (6-35); Albumin Level 4.6 g/dL (3.5-5.1); Alkaline Phosphatase 85 U/L (38-126); Anion Gap 11 mmol/L (8-16); Aspartate Amino Transferase 28 U/L (14-36); Bilirubin,Total 0.7 mg/dL (0.2-1.3); Blood Urea Nitrogen 13 mg/dL (7-17); Calcium 9.1 mg/dL (8.4-10.2); Carbon Dioxide 27 mmol/L (22-30); Chloride 100 mmol/L (98-107); Estimated CRCL calculation 84 ml/min; Estimated Glomerular Filt Rate > 60; Glucose 101 mg/dL (65-110); Lipase 90 U/L (23-300); Potassium 3.7 mmol/L (3.4-5.0); Sodium 138 mmol/L (137-145)
--- NOTE | 2022-01-29 12:25 | ECG_ITS ---
Measurements Intervals [place] Rate: 72 P: 58 RI: 169 QRS: -7 QRSD: 85 T: -2 QT: 393 QTc: 433 Interpretive Statements SINUS RHYTHM BASELINE ARTIFACT LOW QRS VOLTAGE IN PRECORDIAL LEADS NONSPECIFIC ST-WAVE ABNORMALITY BORDERLINE ECG NO PREVIOUS ECG AVAILABLE FOR COMPARISON Electronically Signed On 01-30-2022 13:18:02 CDT by David Holman M.D.
[2022-01-29 12:30] VITALS: BP 132/85; O2SAT 99
[2022-01-29 12:35] LABS: Appearance Urine Slightly Cloudy (Clear); Bilirubin Urine 2+ (Negative); Blood Urine 2+ (Negative); Color Urine Yellow (Yellow); Glucose Urine UA Negative (Negative); Ketones Urine 3+ mg/dL (Negative); Leukocyte Esterase Ur Negative LEU/UL (Negative); Nitrate Urine Negative (Negative); Protein Urine 1+ mg/dL (Negative); Specific Grav Ur >= 1.030 (1.001-1.035)
[2022-01-29 12:40] LABS: Bacteria Urine Trace /hpf; Mucus Urine Heavy /lpf; Squamous Epithelial Cell Urine Many /hpf (Few)
[2022-01-29 12:43] LABS: Add Urine Microscopic? YES
[2022-01-29] MEDS: MAGNESIUM SULF 1 GM/D5W 100 ML 1 GM/100 ML BAG IVPB (12:59)
[2022-01-29 13:30] VITALS: BP 120/86; O2SAT 99
[2022-01-29] MEDS: MAG HYDROX/AL HYDROX/SIMETH 30 ML UDC PO (13:54)
[2022-01-29 14:31] VITALS: BP 123/81; O2SAT 100
== END 2022-01-29 14:55 | disposition home or self-care (01) ==
PROVIDERS: Physician Assistant; Emergency Provider Preventive Medicine Aerospace Medicine; PCP Physician Assistant
DX: K29.70 Gastritis, unspecified, without bleeding (principal); E28.2 Polycystic ovarian syndrome; K21.9 Gastro-esophageal reflux disease without esophagitis; M06.9 Rheumatoid arthritis, unspecified; Z79.899 Other long term (current) drug therapy; K76.0 Fatty (change of) liver, not elsewhere classified; R94.31 Abnormal electrocardiogram [ECG] [EKG]
CPT/HCPCS: 36415; 74177; 80053; 81001; 81025; 83690; 83735; 84100; 85025; 87086; 93005; 96361; 96365; 96375; 99284; A9270; J2405; J3475; J7030; Q9967

== ENCOUNTER 2022-01-30 19:18 | Emergency (ER) | payer OTHER, SELFPAY ==
[2022-01-30 19:21] VITALS: BP 140/95; PULSE 109; RESP 20; TEMP 36.5; O2SAT 99
--- NOTE | 2022-01-30 19:59 | ED.GENADULT ---
HPI - General Adult General Chief complaint: Headache Stated complaint: Lower back pain, RIVERA, n/v, seen here yesterday Time Seen by Provider: 01/30/22 19:33 History of Present Illness HPI narrative: 36-year-old female presents emergency room secondary to multiple complaints. She began on Tuesday with nausea and vomiting. Been having episodes of nausea and vomiting as well as diffuse nonspecific abdominal pain since then. She was seen in our emergency room yesterday and had extensive work-up evaluation included laboratory testing and CT of the abdomen showing pathology. She called her primary care physician today who called in some additional medications for her. She is also complaining of a headache which seems to be more occipital in nature. She been taking the medication as prescribed but seems to still have these episodes of nausea vomiting and cramping abdominal pain. She got a able to keep any solid food down this week. She is having some bowel movements but a small pellets . Denies any vomiting of any blood. She states the symptoms remind her of her when her child had mono years ago and she like to be tested for mono. She did a home COVID test which was noted be negative. Related Data Home Medications Medication Instructions Recorded Confirmed semaglutide 0.25 mg or 0.5 mg (2 0.25 mg subcut WEEKLY 08/17/21 09/09/21 mg/1.5 mL) subcutaneous pen injector (Ozempic) azelastine 137 mcg (0.1 %) nasal 1 spray intranasal Q12H PRN SINUS 08/31/21 09/09/21 spray aerosol PROBLEMS Allergies Allergy/AdvReac Type Severity Reaction Status Date / Time metoclopramide Allergy Severe swelling Verified 01/30/22 19:31 in hands and face clavulanic acid AdvReac Mild Nausea Verified 01/30/22 19:31 Review of Systems Review of Systems: CONSTITUTIONAL: Denies fever, chills, or sweats. EYES: Denies visual changes, redness, or discharge. ENT: Denies rhinorrhea, congestion, sore throat, or otalgia. CARDIOVASCULAR: Denies chest pain, palpitations, or edema. RESPIRATORY: Denies cough or dyspnea. GASTROINTESTINAL: Diffuse cramping type abdominal pain with associated nausea vomiting. No diarrhea GENITOURINARY: Denies dysuria or hematuria. SKIN: Denies rash or itching. MUSCULOSKELETAL: Denies back pain, joint pain, or myalgia. NEUROLOGIC: Having headache but denies any numbness or weakness PSYCHIATRIC: Denies anxiety or depression. [facility] [place] Past Medical History Medical History Anxiety Anxiety and depression Bipolar 2 disorder Chronic headaches GERD (gastroesophageal reflux disease) Hallux valgus of right foot Light headedness Rheumatoid arthritis involving ankle Surgical History Surgical History Previous section x2, 2006,2009 S/P wisdom tooth extraction Family History Family History Grandparent Diabetes mellitus Hypertension Mother Family history of rheumatoid arthritis Father Family history of coronary artery disease, Onset Age: 47 Patient's father is Grandparent Family history of type 2 diabetes mellitus Social History Social History Smoking status: Never smoker Second hand tobacco smoke exposure: No Alcohol intake: never Substance use: never Gender identity (if verbalized by the patient): Female 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ns: No Exam Narrative: APPEARANCE: Well appearing, no pain or distress, well-nourished. Head Normocephalic and atraumatic. EYES: PERRLA/EOMI, conjunctivae clear. NOSE: Normal with no drainage EARS:TMS clear with Luciano, with good light reflex. THROAT: Pharynx clear, no exudate. NECK: Supple. No adenopathy, no masses. RESPIRATORY: Airway patent, respirations nonlabored. Clear to auscultation bilaterally, no rales, rhonchi, wheezing.
[2022-01-30] MEDS: SODIUM CHLORIDE 0.9% IV 1,000 ML 999 ML IV CONT ×2 (20:00→22:23)
[2022-01-30 20:32] LABS: Monoscreen Negative (Negative); Negative Monotest Control Negative (Negative); Positive Monotest Control Positive (Positive)
[2022-01-30 20:41] LABS: SARS-CoV-2 RNA PCR Negative
[2022-01-30] MEDS: DICYCLOMINE HCL INJ 20 MG/2 ML VIAL IM (21:06)
[2022-01-30] MEDS: PANTOPRAZOLE SODIUM IV 40 MG VIAL IV PUSH (21:06)
[2022-01-30] MEDS: PROCHLORPERAZINE EDISYLATE 10 MG/2 ML VIAL IV PUSH (22:03)
[2022-01-30] MEDS: LORazepam INJ (*CRX) 2 MG/ML VIAL 0.5 MG IV PUSH (22:21)
--- NOTE | 2022-01-30 22:25 | PC.NURSE ---
after patient received compazine she became very anxious and hot. cool wash cloths given. Dr. Minor aware, new orders received. arrived at bedside
[2022-01-30 23:06] VITALS: BP 134/90; PULSE 85; RESP 16; O2SAT 99
== END 2022-01-30 23:07 | disposition home or self-care (01) ==
PROVIDERS: Emergency Provider Emergency Medicine; PCP Physician Assistant
DX: K52.9 Noninfective gastroenteritis and colitis, unspecified (principal); K21.9 Gastro-esophageal reflux disease without esophagitis; E86.0 Dehydration; Z20.822 Contact with and (suspected) exposure to COVID-19; M06.9 Rheumatoid arthritis, unspecified; F41.9 Anxiety disorder, unspecified; F31.81 Bipolar II disorder; Z79.899 Other long term (current) drug therapy
CPT/HCPCS: 36415; 86308; 96361; 96372; 96374; 96375; 99284; C9113; C9803; J0500; J0780; J2060; J7030; U0003; U0005

== ENCOUNTER 2022-02-01 13:13 | Outpatient (CLI) | payer OTHER, SELFPAY ==
--- NOTE | ~2022-02-01 | XR_ITS ---
EXAMINATION: XR hip BI 2V w AP pelvis DATE: 02/01/2022 13:38 INDICATION: Generalized hip pain TECHNIQUE: AP view the pelvis and two views of each hip were obtained. COMPARISON: 04/01/2021 FINDINGS: Bone alignment is normal. There is no fracture. There is mild osteoarthritis of the right h ip. Phleboliths are noted in the pelvis. IMPRESSION: 1. Mild osteoarthritis of the right hip. Reviewed, dictated and finalized at location A.
== END 2022-02-01 13:14 | disposition home or self-care (01) ==
PROVIDERS: PCP Physician Assistant; Visit Provider Physician Assistant
DX: M16.11 Unilateral primary osteoarthritis, right hip (principal)
CPT/HCPCS: 73521

== ENCOUNTER 2022-03-01 08:20 | Outpatient (CLI) | payer OTHER, SELFPAY ==
[2022-03-01 08:54] LABS: Hemoglobin A1C 4.9 % (<5.7)
[2022-03-01 08:56] LABS: Alanine Aminotransferase 50 U/L (6-35); Albumin Level 4.1 g/dL (3.5-5.1); Alkaline Phosphatase 83 U/L (38-126); Anion Gap 10 mmol/L (8-16); Aspartate Amino Transferase 41 U/L (14-36); Bilirubin,Total 0.6 mg/dL (0.2-1.3); Blood Urea Nitrogen 13 mg/dL (7-17); Calcium 9.1 mg/dL (8.4-10.2); Carbon Dioxide 23 mmol/L (22-30); Chloride 104 mmol/L (98-107); Cholesterol 244 mg/dL (0-200); Estimated Glomerular Filt Rate > 60; Glucose 104 mg/dL (65-110); HDL Direct 84 mg/dL; Sodium 137 mmol/L (137-145); Triglycerides 185 mg/dL (<150)
[2022-03-01 09:07] LABS: LDL Cholesterol Direct 104 mg/dL
[2022-03-03 12:15] LABS: Insulin Level Total 13.2 uIU/mL (<=19.6)
[2022-03-05 19:54] LABS: Testosterone Free 5.6 pg/mL (0.1-6.4); Testosterone Total 99 ng/dL (2-45)
== END 2022-03-01 08:21 | disposition home or self-care (01) ==
PROVIDERS: PCP Physician Assistant; Visit Provider Nurse Practitioner
DX: E28.2 Polycystic ovarian syndrome (principal); R73.01 Impaired fasting glucose
CPT/HCPCS: 36415; 80053; 80061; 83036; 83525; 84402; 84403

== ENCOUNTER 2022-03-15 00:27 | Day surgery (SDC) | payer OTHER, SELFPAY ==
[2022-02-25 13:43] VITALS: BMI 31.6
--- NOTE | 2022-03-15 09:44 | WPDANESEPPF ---
Anes - Initial Pre Proc Eval Procedure: Operation Date: 03/15/22 11:00 Proposed Procedures p Esophagogastroduodenoscopy - Josiah Diego MD Date/Time: 03/15/22 09:44 Surgeon: Josiah Diego MD Pre Op Diagnosis: epigastric pain Patient Data Age: 36 Gender: F Height: 1.68 m Weight: 89 kg Allergies Allergy/AdvReac Type Severity Reaction Status Date / Time metoclopramide Allergy Severe swelling Verified 03/15/22 09:45 in hands and face clavulanic acid AdvReac Mild Nausea Verified 03/15/22 09:45 Home Medications Medication Instructions Recorded Confirmed Type semaglutide 0.25 mg or 0.5 mg (2 0.25 mg subcut WEEKLY 08/17/21 02/25/22 History mg/1.5 mL) subcutaneous pen injector (Ozempic) sertraline 100 mg tablet 100 mg PO DAILY #90 tabs 01/04/22 02/25/22 Rx ondansetron 4 mg disintegrating 4 mg PO Q8H PRN nausea and 01/29/22 02/25/22 Rx tablet vomiting #10 tabs rabeprazole 20 mg tablet,delayed 20 mg PO DAILY #90 tabs 02/01/22 02/25/22 Rx release (AcipHex) cyclobenzaprine 10 mg tablet 10 mg PO .QHS PRN muscle spasm #30 02/25/22 02/25/22 Rx tabs rizatriptan 10 mg disintegrating See Rx Instructions PO .COMPLEX 02/25/22 02/25/22 History tablet (Maxalt-MORNING CAREGIVER) lorazepam 0.5 mg tablet 0.5 mg PO BID PRN anxiety #30 tabs 03/09/22 Rx Patient hx anesthesia problems: none Family hx anesthesia problems: none Results Review: All pre-operative results and documents have been reviewed as part of the pre-operative evaluation. [facility] Past Medical History Medical History Anxiety Anxiety and depression Bipolar 2 disorder Chronic headaches Epigastric pain GERD (gastroesophageal reflux disease) Hallux valgus of right foot Light headedness Nausea Rheumatoid arthritis involving ankle Surgical History Surgical History Previous section x2, 2006,2009 S/P wisdom tooth extraction Family History Family History Grandparent Diabetes mellitus Hypertension Mother Family history of rheumatoid arthritis Father Family history of coronary artery disease, Onset Age: 47 Patient's father is Grandparent Family history of type 2 diabetes mellitus Social History Social History Smoking status: Never smoker Second hand tobacco smoke exposure: No Alcohol intake: never Substance use: never Gender identity (if verbalized by the patient): Female 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ns: No Anes - Eval Final PreProcedure Day of Procedure 03/15/22 09:44 Patient weight: obese Heart: regular rate and rhythm Lungs: clear to auscultation Airway: Mallampati scale class II Neurological: alert and oriented Last oral intake: >/= 8 hours ASA classification: III Emergent: no Anesthetic plan: proceed Anesthesia type and monitoring: general GIVS and standard monitoring Results Review: All pre-operative results and documents have been reviewed as part of the pre-operative evaluation. Informed Consent: The patient's anesthetic plan and its attendant risks and benefits were discussed with the patient/family/POA. Questions were solicited and answers provided to the satisfaction of the patient/family/POA.
[2022-03-15 09:45] VITALS: BP 134/93; PULSE 91; RESP 18; TEMP 36.3; O2SAT 97; BMI 31.9
[2022-03-15] MEDS: LACTATED RINGERS 1,000 ML 150 ML IV CONT (09:52)
--- NOTE | 2022-03-15 10:06 | WPDHPUPDATE1 ---
History and Physical Update Update Date/Time: 03/15/22 10:06 History and Physical has been reviewed, including an updated exam of the patient. There are NO changes in the patient's condition. Risks, benefits, and alternatives have been discussed and questions answered. Patient agrees to proceed with procedure.
[2022-03-15 10:19] VITALS: BP 106/63; PULSE 75; RESP 21; O2SAT 99
[2022-03-15 10:29] VITALS: BP 115/81; PULSE 72; RESP 21; O2SAT 98
[2022-03-15 10:39] VITALS: BP 108/75; PULSE 73; RESP 13; O2SAT 100
== END 2022-03-15 10:56 | disposition home or self-care (01) ==
PROVIDERS: PCP Physician Assistant; Visit Provider Internal Medicine Gastroenterology
PROC: 0DJ08ZZ Inspection of Upper Intestinal Tract, Via Natural or Artificial Opening Endoscopic (ICD-10-PCS; CPT 43235; principal; 2022-03-15 11:00)
DX: K21.9 Gastro-esophageal reflux disease without esophagitis (principal); F41.9 Anxiety disorder, unspecified; F31.81 Bipolar II disorder; M06.9 Rheumatoid arthritis, unspecified; R10.13 Epigastric pain; R11.0 Nausea; K29.50 Unspecified chronic gastritis without bleeding; E66.9 Obesity, unspecified; Z68.32 Body mass index [BMI] 32.0-32.9, adult
CPT/HCPCS: 43239; 88305; J2704; J7120

== ENCOUNTER 2022-05-23 10:15 | Emergency (ER) | payer OTHER, SELFPAY ==
--- NOTE | 2022-05-23 10:26 | ED.URI ---
HPI - URI/Sore Throat General Chief Complaint: Upper Respiratory Infection Stated Complaint: sore throat ears congestion Time Seen by Provider: 05/23/22 10:26 Source: patient and RN notes reviewed History of Present Illness HPI Narrative: patient is a 36-year-old female who presents to the Urgent Care with complaints of sore throat, ear pain, congestion. Patient states that she had influenza last week, felt better and then symptoms returned yesterday. Patient states that she is concerned with strep due to recurrent strep infections. Patient has been using cough syrup and Mucinex as well as Tylenol, DayQuil and NyQuil. Patient denies a fever. Denies any known ill contacts. No other acute complaints. No acute distress noted. Patient aware of the plan of care. Some parts of this dictation were generated by voice recognition software and may contain typographical and/or grammatical inaccuracies. Related Data Home Medications Medication Instructions Recorded Confirmed semaglutide 0.25 mg or 0.5 mg (2 0.25 mg subcut WEEKLY 08/17/21 03/15/22 mg/1.5 mL) subcutaneous pen injector (Ozempic) rizatriptan 10 mg disintegrating See Rx Instructions PO .COMPLEX 02/25/22 03/15/22 tablet (Maxalt-BOTTOM FILLER) Allergies Allergy/AdvReac Type Severity Reaction Status Date / Time metoclopramide Allergy Severe swelling Verified 05/23/22 10:26 in hands and face clavulanic acid AdvReac Mild Nausea Verified 05/23/22 10:26 Review of Systems Review of Systems: CONSTITUTIONAL: Denies fever, chills, or sweats. EYES: Denies visual changes, redness, or discharge. ENT: Reports of sore throat, hoarse voice, sinus congestion and ear pain. CARDIOVASCULAR: Denies chest pain, palpitations, or edema. RESPIRATORY: Reports of cough without dyspnea GASTROINTESTINAL: Denies abdominal pain, nausea, vomiting, or diarrhea. GENITOURINARY: Denies dysuria or hematuria. SKIN: Denies rash or itching. MUSCULOSKELETAL: Denies back pain, joint pain, or myalgia. NEUROLOGIC: Denies headache, numbness, or weakness. All other systems reviewed are negative, except as documented in HPI. [facility] Past Medical History Medical History Anxiety Anxiety and depression Bipolar 2 disorder Chronic headaches Epigastric pain GERD (gastroesophageal reflux disease) Hallux valgus of right foot Light headedness Nausea Rheumatoid arthritis involving ankle Surgical History Surgical History Previous section x2, 2007,2009 S/P wisdom tooth extraction Family History Family History Grandparent Diabetes mellitus Hypertension Mother Family history of rheumatoid arthritis Father Family history of coronary artery disease, Onset Age: 47 Patient's father is Grandparent Family history of type 2 diabetes mellitus Social History Social History Smoking status: Never smoker Second hand tobacco smoke exposure: No Alcohol intake: never Substance use: never Gender identity (if verbalized by the patient): Female 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ns: No Comments At the time of my signature, I reviewed and agree with the nursing past medical, surgical, social, and family history. There is no relevant family history pertinent to the patient complaint. Exam Narrative: GENERAL: This is a well-nourished, well-developed patient, in no apparent distress. HEAD: normocephalic, atraumatic. EYES: PERRL. Sclera clear/white. Vision is grossly intact. EARS: External ears normal, auditory canals clear and without drainage, TMs normal without perforation. Hearing grossly intact. NOSE: External nose normal with no obvious nasal discharge, nares without redness, clear rhinorrhea. THROAT: Mucous membranes moist, posterior pharynx clear. mil
[2022-05-23 10:30] VITALS: BP 119/78; PULSE 91; RESP 20; TEMP 36.6; O2SAT 100
== END 2022-05-23 10:55 | disposition home or self-care (01) ==
PROVIDERS: Emergency Provider Nurse Practitioner Family
DX: J02.9 Acute pharyngitis, unspecified (principal); K21.9 Gastro-esophageal reflux disease without esophagitis; M06.9 Rheumatoid arthritis, unspecified; F41.9 Anxiety disorder, unspecified; F32.A Depression, unspecified
CPT/HCPCS: 87081; 99212; G0463

== ENCOUNTER 2022-07-17 08:36 | Outpatient (CLI) | payer OTHER, SELFPAY ==
[2022-07-17 10:59] LABS: Alanine Aminotransferase 23 U/L (6-35); Alkaline Phosphatase 73 U/L (38-126); Anion Gap 3 mmol/L (8-16); Aspartate Amino Transferase 22 U/L (14-36); Bilirubin,Total 0.6 mg/dL (0.2-1.3); Blood Urea Nitrogen 13 mg/dL (7-17); Calcium 8.8 mg/dL (8.4-10.2); Carbon Dioxide 30 mmol/L (22-30); Chloride 105 mmol/L (98-107); Cholesterol 234 mg/dL (0-200); Estimated Glomerular Filt Rate > 60; Glucose 94 mg/dL (65-110); HDL Direct 88 mg/dL; Potassium 3.8 mmol/L (3.4-5.0); Sodium 138 mmol/L (137-145); Triglycerides 156 mg/dL (<150)
[2022-07-17 11:02] LABS: Hemoglobin A1C 4.5 % (<5.7)
[2022-07-17 11:12] LABS: LDL Cholesterol Direct 96 mg/dL
[2022-07-21 11:40] LABS: Insulin Level Total 7.2 uIU/mL (<=19.6)
[2022-07-24 17:49] LABS: Testosterone Free 2.3 pg/mL (0.1-6.4); Testosterone Total 73 ng/dL (2-45)
== END 2022-07-17 08:37 | disposition home or self-care (01) ==
PROVIDERS: Visit Provider Nurse Practitioner
DX: E28.2 Polycystic ovarian syndrome (principal); R73.01 Impaired fasting glucose
CPT/HCPCS: 36415; 80053; 80061; 83036; 83525; 84402; 84403

== ENCOUNTER 2022-09-15 11:08 | Outpatient (CLI) | payer OTHER, SELFPAY ==
--- NOTE | ~2022-09-15 | XR_ITS ---
XR ribs LT 2V w CXR 2V DATE: 09/15/2022 11:28 INDICATION: Chest pain TECHNIQUE: PA and lateral views of the chest. 3 views of the left ribs. COMPARISON: 07/18/2019 PA chest FINDINGS: There is mild levoscoliosis of the thoracic spine. No left rib fracture or bone destruction . Normal alignment at the acromioclavicular and glenohumeral joints, left shoulder as well as on the right. Normal heart size. No hilar or mediastinal enlargement. No pulmonary infiltrate or consolidation, ple ural effusion or pulmonary vascular congestion or pneumothorax. IMPRESSION: Negative chest and negative left ribs Reviewed, dictated and finalized at location B.
== END 2022-09-15 11:09 | disposition home or self-care (01) ==
LOC: ANHIMG 11:12
PROVIDERS: PCP Physician Assistant; Visit Provider Physician Assistant
DX: R07.9 Chest pain, unspecified (principal)
CPT/HCPCS: 71046; 71100

== ENCOUNTER 2022-09-23 11:56 | Outpatient (CLI) | payer OTHER, SELFPAY ==
[2022-09-23 12:36] LABS: Rheumatoid Factor < 8.6 IU/ML (<12)
[2022-09-23 12:38] LABS: CRP 1.8 mg/dL (<1.0)
[2022-09-23 12:59] LABS: Erythrocyte Sedimentation Rate 13 mm/hr (0-20)
[2022-09-27 11:36] LABS: Cyclic Citrullinated Peptide <16 Units (<20)
== END 2022-09-23 11:57 | disposition home or self-care (01) ==
PROVIDERS: PCP Physician Assistant; Visit Provider Internal Medicine Endocrinology, Diabetes & Metabolism
DX: M19.90 Unspecified osteoarthritis, unspecified site (principal)
CPT/HCPCS: 36415; 85652; 86038; 86140; 86430

== ENCOUNTER 2024-01-31 08:08 | Emergency (ER) | payer OTHER, SELFPAY ==
--- NOTE | ~2024-01-31 | XR_ITS ---
XR hip LT min 2V Ordering provider: LAMONT Mistry History: . Fell . Pain to lateral/posterior hip. . Comparison: February 01, 2022 FINDINGS: BONES: No acute fracture or dislocation. HIP JOINT SPACES: Normal. SACROILIAC JOINT SPACES/LUMBAR SPINE: The sacroiliac joint spaces are normal. Normal visualized lower lumbar spine. PUBIC SYMPHYSIS: Normal. SOFT TISSUES: Normal. IMPRESSION: No acute osseous abnormality pelvis and left hip. Reviewed, dictated and finalized at location A.
[2024-01-31 08:22] VITALS: BP 117/75; PULSE 76; RESP 16; TEMP 37; O2SAT 100
--- NOTE | 2024-01-31 08:38 | ED.GENADULT ---
HPI - General Adult General Chief complaint: Back Pain/Injury Stated complaint: WC Left hip down pain/fall Source: patient Mode of arrival: ambulatory Limitations: no limitations History of Present Illness HPI narrative: Patient presents for evaluation of left hip pain since last . She indicates she slipped on a wet tile floor at work. She hit her left hip against the ground. She did not hit her head. No LOC. She initially had some mild pain in both wrists and in her neck but those symptoms have resolved. She states that pain is constant, dull, 7/10 in severity, worse when laying down. Pain radiates from the lateral aspect of the hip to the anterior portion of the proximal left thigh, and also down the lateral aspect of the thigh. She has tried taking ASA for her symptoms without much improvement in her symptoms thereafter. She does have bruising to the left lateral hip. Related Data Home Medications Medication Instructions Recorded Confirmed fluoxetine 40 mg capsule 40 mg PO DAILY 09/15/22 11/30/22 norgestimate-ethinyl estradiol 1 tablet PO DAILY 11/30/22 11/30/22 0.18 mg/0.215mg/0.25mg-35 mcg(28)tablet (Tri-Estarylla) quetiapine 25 mg tablet (Seroquel) 25 mg PO QHS 11/30/22 11/30/22 buspirone 15 mg tablet mg 01/31/24 Allergies Allergy/AdvReac Type Severity Reaction Status Date / Time metoclopramide Allergy Severe swelling Verified 11/30/22 10:02 in hands and face clavulanic acid AdvReac Mild Nausea Verified 11/30/22 10:02 Review of Systems Review of Systems: CONSTITUTIONAL: Denies fever, chills, or sweats. EYES: Denies visual changes, redness, or discharge. ENT: Denies rhinorrhea, congestion, sore throat, or otalgia. CARDIOVASCULAR: Denies chest pain, palpitations, or edema. RESPIRATORY: Denies cough or dyspnea. GASTROINTESTINAL: Denies abdominal pain, nausea, vomiting, or diarrhea. GENITOURINARY: Denies dysuria or hematuria. SKIN: Reports bruising to the left hip MUSCULOSKELETAL: Reports left hip pain. Denies low back pain. NEUROLOGIC: Denies headache, numbness, dizziness, or weakness. PSYCHIATRIC: Denies anxiety or depression. [facility] Past Medical History Medical History Anxiety Anxiety and depression Bipolar 2 disorder Chronic headaches Epigastric pain GERD (gastroesophageal reflux disease) Hallux valgus of right foot Herpes zoster Light headedness Nausea Rheumatoid arthritis involving ankle Surgical History Surgical History Previous section x2, 2007,2010 S/P wisdom tooth extraction Family History Family History Grandparent Diabetes mellitus Hypertension Mother Family history of rheumatoid arthritis Father Family history of coronary artery disease, Onset Age: 47 Patient's father is Grandparent Family history of type 2 diabetes mellitus Social History Social History Smoking status: Never smoker Second hand tobacco smoke exposure: No Alcohol intake: never Substance use: never Lack of Transportation: No Lack of Food: Never True Current Housing: I Have Housing Concerned About Future Housing: No Difficulty Paying Gas/Electric Bills: No Difficulty Paying for Meds: No Currently Unemployed: No Education: High School Diploma/GED Difficulty w/ Childcare or Family Care: No Living arrangements: with family Gender identity (if verbalized by the patient): Female 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ns: No Exam Narrative: GENERAL: Well-appearing, well-nourished, and in no acute distress. HEAD: Normocephalic, atraumatic. EYES: PERRLA and EOMI. ENT: Nares clear, no rhinorrhea or epistaxis. Mucous membranes moist. Oropharynx without tonsillar hypertrophy exudate or other lesio
== END 2024-01-31 09:17 | disposition home or self-care (01) ==
PROVIDERS: Emergency Provider Nurse Practitioner
DX: S70.02XA Contusion of left hip, initial encounter (principal); W01.0XXA Fall on same level from slipping, tripping and stumbling without subsequent striking against object, initial encounter; Y99.8 Other external cause status; F32.9 Major depressive disorder, single episode, unspecified; K21.9 Gastro-esophageal reflux disease without esophagitis; M06.9 Rheumatoid arthritis, unspecified
CPT/HCPCS: 73502; 99213; G0463

== ENCOUNTER 2024-06-08 08:02 | Emergency (ER) | payer OTHER, SELFPAY ==
--- NOTE | ~2024-06-08 | XR_ITS ---
EXAMINATION: XR chest 2V 06/08/2024 08:33 INDICATION: Cough for one week PROCEDURE: 2 view chest COMPARISON: Comparison to multiple prior studies sequentially, with oldest reviewed study dated 09/10. FINDINGS: The lungs are clear. The cardiomediastinal silhouette is within normal limits. There are no pleural effusions. There is no pneumothorax suspected. IMPRESSION: 1: NO ACUTE CARDIOPULMONARY DISEASE. Reviewed, dictated and finalized at location B. [place]
--- NOTE | 2024-06-08 08:07 | ED_ITS ---
HPI - URI/Sore Throat General Chief Complaint: Upper Respiratory Infection Stated Complaint: cough/nose/throat Time Seen by Provider: 06/08/24 08:13 Source: patient, RN notes reviewed and old records reviewed Mode of arrival: ambulatory Limitations: no limitations History of Present Illness HPI Narrative: 38-year-old female presents to the [facility] with complaints of a cough and nasal drainage that started Patient concern for pneumonia, positive exposure Related Data Home Medications ?Medication ?Instructions ?Recorded ?Confirmed ?Last Taken ?Type norgestimate-ethinyl estradiol 1 tablet PO DAILY 11/30/22 11/30/22 Unknown History 0.18 mg/0.215mg/0.25mg-35 mcg(28)tablet (Tri-Estarylla) Allergies Allergy/AdvReac Type Severity Reaction Status Date / Time metoclopramide Allergy Severe swelling Verified 06/08/24 08:14 in hands and face clavulanic acid AdvReac Mild Nausea Verified 06/08/24 08:14 Review of Systems Review of Systems: All systems reviewed & are unremarkable except as noted in HPI and below Constitutional: Constitutional: Reports no additional constitutional complaints ENT: Reports system reviewed and no additional complaints, except as documented Cardiovascular: Cardiovascular: Reports no additional cardiovascular complaints, Denies chest pain and Denies dyspnea Respiratory: Respiratory: Reports as per HPI, Reports chest congestion, Reports cough and Denies dyspnea Musculoskeletal: Musculoskeletal: Reports no additional musculoskeletal complaints Integumentary/Breasts: Skin/Breast: Reports system reviewed and no additional complaints, except as docu PMFSH Past Medical History Medical History BMI 23.0-23.9, adult Nausea Epigastric pain Herpes zoster Hallux valgus of right foot Rheumatoid arthritis involving ankle Light headedness Chronic headaches GERD (gastroesophageal reflux disease) Anxiety Anxiety and depression Bipolar 2 disorder Surgical History Surgical History Previous section x2, 2007,2010 S/P wisdom tooth extraction Family History Family History Grandparent Diabetes mellitus Hypertension Mother Family history of rheumatoid arthritis Father Family history of coronary artery disease, Onset Age: 47 Acute myocardial infarction Grandparent Family history of type 2 diabetes mellitus Sibling No problems noted. 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 There is no relevant family history pertinent to the patient complaint. Exam Const: General: cooperative, healthy appearing, comfortable, no acute distress, well developed, alert and well nourished Nutritional Appearance: well nourished Orientation/consciousness: patient oriented x3 Limitations: no limitations HENMT: Head: normal to inspection Ears: hearing grossly normal bilaterally, external ears normal, TM's normal bilaterally, EAC's normal, mastoids normal and no periauricular adenopathy Face/Nose/Sinus: normal facial exam and face symmetric Face and sinus: normal facial exam and face symmetric Mouth: Yes Normal oral and palatal mucosa present, Yes lip normal and Yes tongue normal Throat: uvula midline, postnasal drainage and no uvular edema Eyes: General: appearance normal, both eyes and all related structures Neck: Neck: normal visual inspection, full ROM, no lymphadenopathy and no meningeal signs Chest: Chest palpation & inspection: normal inspection of the chest Resp: Effort & Inspection: normal respiratory effort and able to speak in complete sentences Auscultation: clear to auscultation bilaterally, no crackles, no rales, no rhonchi and no wheezes Cardio: Rate: regular rate Skin: General skin exam: normal color and no rashes or lesions noted Neuro: General: patient oriented x3, gait normal, moves all extremities and no meningeal signs Cognition (Neuro): normal cognition Speech: normal speech Gait exam (Neuro): Normal gait present Extrem: General: normal to inspection, full ROM, capillary refill normal and normal gait Psych: Appearance: grossly normal and well kempt Mental Status: mental status grossly normal Speech and movement: Normal speech and movement present and Clear speech present Affect: normal affect Attitude: cooperative Course Course Level of Care: Express Care Visit Vital Signs Vital signs: Vital Signs Temperature 99 F 06/08/24 08:11 Pulse Rate 120 H 06/08/24 08:11 Respiratory Rate 18 06/08/24 08:11 Blood Pressure 142/97 H 06/08/24 08:11 Pulse Oximetry 100 06/08/24 08:11 Oxygen Delivery Room Air 06/08/24 08:11 Temperature 99 F 06/08/24 08:11 Pulse Rate 120 H 06/08/24 08:11 Respiratory Rate 18 06/08/24 08:11 Blood Pressure 142/97 H 06/08/24 08:11 Pulse Oximetry 100 06/08/24 08:11 Oxygen Delivery Room Air 06/08/24 08:11 Reviewed MDM - URI/Sore Throat MDM Narrative Medical decision making narrative: Patient sitting comfortably in exam room. Nontoxic. Patient in no acute distress. Patient presents with concerns for pneumonia due to exposure. Patient cough x1 week X-ray negative for. Exam consistent bronchitis. Discussed treatment plan Patient appropriate for outpatient treatment and follow-up Discharge instructions reviewed with patient, as well as provided in writing per nursing staff. The instructions also include specific and strict return/GO TO THE ER as well as f/u information. All questions have been answered, and the patient deny any further questions with discharge and discharge plan. Some parts of this dictation were generated by voice recognition software and may contain typographical and/or grammatical inaccuracies. Differential Diagnosis Differential diagnosis: Likely upper respiratory infection, viral infection and bronchitis Imaging Data Radiologist's impression: EXAMINATION: XR chest 2V 06/08/2024 08:33 INDICATION: Cough for one week PROCEDURE: 2 view chest COMPARISON: Comparison to multiple prior studies sequentially, with oldest [facility] study dated 09/10/2009. FINDINGS: The lungs are clear. The cardiomediastinal silhouette is within normal limits. There are no pleural effusions. There is no pneumothorax suspected. IMPRESSION: 1: NO ACUTE CARDIOPULMONARY DISEASE. Critical Care Time Critical Care Time Critical Care Time: No Discharge Plan Discharge Clinical Impression: Bronchitis Patient Disposition: Home, Self-Care Condition: Stable Instructions: Antibiotic Form, Acute Bronchitis (ED) Additional Instructions: Today your x-ray did not show signs of pneumonia. Your symptoms are likely due to a viral illness, which is not treated with antibiotics. Typically viral infections last 7-10 days, can linger for couple of weeks. It is very important to treat your symptoms. Drink plenty of water, Gatorade, Pedialyte, ice pops or Jell-O. -Alternate Tylenol and Motrin per package directions for fever or pain. You can alternate every 4 hours -Antihistamine medication such as Benadryl at night and Zyrtec/Claritin/Zenaida during the day can help improve symptoms. -doing daily nasal irrigations can help relieve pressure your sinuses. Things like a Neti pot -Use Flonase twice a day for 5 days then daily to help reduce the inflammation and dry up your sinuses. -You can also use Mucinex. Be sure to drink plenty of water with this medication at least 8 ounces with every dose and it is important to drink 8 to 10 glasses of water per day. Water is a natural decongestant -Eat and drink things that are easy to swallow, like tea or soup, or popsicles. -Oral rinses such as: Salt water gargles and/or may use topical anesthetic (eg. Chloraseptic spray) or lozenges to relieve dryness or throat pain). -Frequent hand washing or hand licensed mortgage loan officer is one of the best ways to prevent spread of infection. -Using a vaporizer or humidifier at night will also help thin secretions and help with coughing up phlegm. -Follow up with primary care provider in 7-10 days if condition is not improving - For new or worsening symptoms go directly to the nearest ER Patient Language: French Prescriptions: New prednisone 20 mg tablet See Rx Instructions .Route .COMPLEX Qty: 9 0RF Rx Instructions: Take 40 mg daily for 3 days, 20 mg daily for 3 days benzonatate 100 mg capsule 100 mg PO TID PRN (Reason: cough) Qty: 10 0RF No Action norgestimate-ethinyl estradiol [Tri-Estarylla] 0.18/0.215/0.25 mg-35 mcg (28) tablet 1 tablet PO DAILY fluoxetine 40 mg capsule 40 mg PO DAILY Qty: 90 1RF fluoxetine 20 mg capsule 20 mg PO DAILY Qty: 90 1RF quetiapine [Seroquel] 25 mg tablet 25 mg PO QHS Qty: 90 1RF rabeprazole [AcipHex] 20 mg tablet,delayed release (DR/EC) 20 mg PO BID Qty: 180 1RF ropinirole 0.5 mg tablet 1.5 mg PO QHS Qty: 270 1RF spironolactone 50 mg tablet 50 mg PO BID Qty: 180 1RF Mounjaro 7.5 mg/0.5 mL pen injector See Rx Instructions .ROUTE .COMPLEX Qty: 2 4RF Dose Instruction: ADMINISTER 7.5 MG UNDER THE SKIN WEEKLY Rx Instructions: ADMINISTER 7.5 MG UNDER THE SKIN WEEKLY buspirone 15 mg tablet 15 mg PO BID Qty: 60 6RF Follow-up/Referrals: Jamaal Marquez DO [Primary Care Provider] [facility] 142/97[facility] Stand Alone Forms: Work/School Release IP Time of Disposition: 08:44
[2024-06-08 08:11] VITALS: BP 142/97; PULSE 120; RESP 18; TEMP 37.2; O2SAT 100
== END 2024-06-08 08:47 | disposition home or self-care (01) ==
PROVIDERS: Emergency Provider Nurse Practitioner; PCP Internal Medicine
DX: J40 Bronchitis, not specified as acute or chronic (principal); K21.9 Gastro-esophageal reflux disease without esophagitis; M06.9 Rheumatoid arthritis, unspecified
CPT/HCPCS: 71046; 99213; G0463

== ENCOUNTER 2024-06-10 11:34 | Emergency (ER) | payer OTHER, SELFPAY ==
[2024-06-10 11:51] VITALS: BP 123/94; PULSE 90; RESP 18; TEMP 37.4; O2SAT 97
--- NOTE | 2024-06-10 12:11 | ED.URI ---
HPI - URI/Sore Throat General Chief Complaint: Upper Respiratory Infection Stated Complaint: Cough/Chest Congestion History of Present Illness HPI Narrative: Patient presents for evaluation states she was here 3 days ago and diagnosed with bronchitis given a steroid and Tessalon Perles. Patient states she takes those as prescribed continues to have a cough. Cough is worse when she lays down at night when she gets of a morning. No shortness of breath no chest pain no fever no body aches. Related Data Home Medications ?Medication ?Instructions ?Recorded ?Confirmed ?Last Taken ?Type norgestimate-ethinyl estradiol 1 tablet PO DAILY 11/30/22 06/10/24 Unknown History 0.18 mg/0.215mg/0.25mg-35 mcg(28)tablet (Tri-Estarylla) norgestimate 0.25 mg-ethinyl tablet 06/10/24 Unknown History estradiol 35 mcg tablet (Estarylla) Allergies Allergy/AdvReac Type Severity Reaction Status Date / Time metoclopramide Allergy Severe swelling Verified 06/10/24 12:21 in hands and face clavulanic acid AdvReac Mild Nausea Verified 06/10/24 12:21 Review of Systems Review of Systems: CONSTITUTIONAL: Denies chills, or sweats. Reports fever and generalized body aches EYES: Denies visual changes, redness, or discharge. ENT: Denies otalgia. Reports nasal congestion runny nose and sore throat CARDIOVASCULAR: Denies chest pain, palpitations, or edema. RESPIRATORY: Denies dyspnea. Reports occasional cough GASTROINTESTINAL: Denies abdominal pain, nausea, vomiting, or diarrhea. GENITOURINARY: Denies dysuria or hematuria. SKIN: Denies rash or itching. MUSCULOSKELETAL: Denies back pain, joint pain, or myalgia. Reports generalized body aches NEUROLOGIC: Denies headache, numbness, or weakness. PSYCHIATRIC: Denies anxiety or depression. [facility] Past Medical History Medical History BMI 23.0-23.9, adult Nausea Epigastric pain Herpes zoster Hallux valgus of right foot Rheumatoid arthritis involving ankle Light headedness Chronic headaches GERD (gastroesophageal reflux disease) Anxiety Anxiety and depression Bipolar 2 disorder Surgical History Surgical History Previous section x2, 2006,2009 S/P wisdom tooth extraction Family History Family History Grandparent Diabetes mellitus Hypertension Mother Family history of rheumatoid arthritis Father Family history of coronary artery disease, Onset Age: 47 Acute myocardial infarction Grandparent Family history of type 2 diabetes mellitus Sibling No problems noted. 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 There is no relevant family history pertinent to the presenting complaint Exam Narrative: The patient is a well-developed, well-nourished in no acute distress. SKIN: Skin is warm and dry without erythema, swelling or exudate. There is good turgor. No tenting. HEAD: Atraumatic. Normocephalic. No temporal or scalp tenderness. EYES: Moist and bright. Sclera and conjunctivae normal. No discharge. PERRLA. Extraocular motions intact. Gross visual acuity intact. EARS: Pinna is normal shape and contour. Clear external auditory canals. TM pearly oconnor with good cone of light, no erythema or suppuration. Bilateral cerumen noted no gross hearing deficit. NOSE: pink, moist mucosa with good air movement. Clear rhinorrhea without nasal flaring. Septum midline. Mouth: moist mucous membranes. THROAT; mild erythema noted to posterior oropharynx with moderate postnasal drainage. Without exudate or ulceration.. Uvula midline. Normal movement of soft palate. NECK: Supple and nontender with full range of motion without discomfort. No meningeal signs. LUNGS: Equal and bilateral breath sounds without wheezes, rales or rhonchi. CHEST: The chest wall is without retractions or use of accessory muscles. HEART: Has a regular rate and rhythm without murmur, gallops, click or rub. ABDOMEN: Soft, nontender with positive active bowel sounds. No rebound tenderness. EXTREMITIES: Without cyanosis, clubbing or edema. Equal 2+ distal pulses and 2 second capillary refill noted. NEUROLOGIC: alert, active, . The patient moves all extremities with normal muscle strength. Normal muscle tone is noted. Normal coordination is noted. NO focal neurological findings noted. Course Course Level of Care: Express Care Visit Vital Signs Vital signs: Vital Signs Temperature 37.4 C 06/10/24 11:51 Pulse Rate 90 06/10/24 11:51 Respiratory Rate 18 06/10/24 11:51 Blood Pressure 123/94 H 06/10/24 11:51 Pulse Oximetry 97 06/10/24 11:51 Oxygen Delivery Room Air 06/10/24 11:51 Temperature 37.4 C 06/10/24 11:51 Pulse Rate 90 06/10/24 11:51 Respiratory Rate 18 06/10/24 11:51 Blood Pressure 123/94 H 06/10/24 11:51 Pulse Oximetry 97 06/10/24 11:51 Oxygen Delivery Room Air 06/10/24 11:51 Please KARIS schedule a followup visit with your personal physician for further evaluation and treatment. Including recheck and discussion of your blood pressure. If your symptoms persist, change or worsen significantly before you can contact your personal physician then please, without delay, go to the emergency department for further evaluation Discharge Plan Discharge Clinical Impression: URI, acute, Post-nasal drainage Patient Disposition: Home, Self-Care Condition: Stable Instructions: Postnasal Drip (DC) Additional Instructions: Continue prednisone and Tessalon Perles as prescribed it previous visit Use inhaler and nasal spray as prescribed Follow-up with primary care provider in 4-5 days for re-evaluation If any new or worsening symptoms please go to ER immediately further evaluation treatment Patient Language: Mongolian Prescriptions: New albuterol sulfate 90 mcg/actuation HFA aerosol inhaler 2 puff inhalation QID PRN (Reason: shortness of breath or wheezing) Qty: 8.5 0RF fluticasone propionate [Flonase Allergy Relief] 50 mcg/actuation spray,suspension 2 spray NASAL BID Qty: 9.9 0RF Rx Instructions: administer into each nostril Zyrtec 10 mg capsule 10 mg PO DAILY Qty: 30 0RF No Action prednisone 20 mg tablet See Rx Instructions .Route .COMPLEX Qty: 9 0RF Rx Instructions: Take 40 mg daily for 3 days, 20 mg daily for 3 days benzonatate 100 mg capsule 100 mg PO TID PRN (Reason: cough) Qty: 10 0RF norgestimate-ethinyl estradiol [Estarylla] 0.25-35 mg-mcg tablet norgestimate-ethinyl estradiol [Tri-Estarylla] 0.18/0.215/0.25 mg-35 mcg (28) tablet 1 tablet PO DAILY fluoxetine 40 mg capsule 40 mg PO DAILY Qty: 90 1RF fluoxetine 20 mg capsule 20 mg PO DAILY Qty: 90 1RF quetiapine [Seroquel] 25 mg tablet 25 mg PO QHS Qty: 90 1RF rabeprazole [AcipHex] 20 mg tablet,delayed release (DR/EC) 20 mg PO BID Qty: 180 1RF ropinirole 0.5 mg tablet 1.5 mg PO QHS Qty: 270 1RF spironolactone 50 mg tablet 50 mg PO BID Qty: 180 1RF Mounjaro 7.5 mg/0.5 mL pen injector See Rx Instructions .ROUTE .COMPLEX Qty: 2 4RF Dose Instruction: ADMINISTER 7.5 MG UNDER THE SKIN WEEKLY Rx Instructions: ADMINISTER 7.5 MG UNDER THE SKIN WEEKLY buspirone 15 mg tablet 15 mg PO BID Qty: 60 6RF Follow-up/Referrals: Jamaal Marquez DO [Primary Care Provider] - Stand Alone Forms: Work/School Release IP
--- OUTSIDE RECORDS SUMMARY | 2024-06-17 15:29 | XMS_ITS | Continuity of Care Document ---
Author Organization [facility] Address [address] [place] [address] Insurance Providers Payer Plan Claims Address Claims Phone Policy Number Group Number Relation Employer Guarantor Name Guarantor Guarantor Address Guarantor Phone Scottstalin Alvarez mckayla [facility] [id number] Spouse Sachin Edouard [address] [place] [address] [facility] Terrell son [id number] Self Yareli Edouard [address] [place] [id number] Self Yareli Edouard [address] [place] [address] Problems Unknown Problems Results No Results Allergies, adverse reactions, alerts No known allergies and adverse reactions Medications No administered medications reported Vital Signs Date Vital Result Comment 05/25/2023 Body Height [id number] m Body Weight 68.740954794461 kg Body Mass Index 24.96 kg/m2 Social History No smoking Hx information available
--- OUTSIDE RECORDS SUMMARY | 2024-06-17 15:29 | XMS_ITS ---
Author Organization [facility] [employer] Address [address] [facility] [address] [place] [address] Care Team Providers Care Assessment Analyst Name Role Phone Migration, Provider Unavailable Unavailable Allergies Allergen (clinical drug ingredient) Drug/Non Drug Allergy documented on EMR Reaction Allergy Type Onset Date Status INFLUENZA A (H5N1) VIRUS VACCINE MONOVAL (18 YR +) (uncoded) Unknown Allergy 07/14/2023 Active metoclopramide Reglan Unknown Drug Allergy 07/14/2023 A ctive REASON FOR VISIT EMR-Maneul Medications Medication SIG (Take, Route, Frequency, Duration) Notes Start Date End Date Status rOPINIRole HCl 0.5 MG Oral 07/14/2023 Active Ibuprofen 800 MG Oral 07/14/2023 Ac tive Spironolactone 25 MG Oral 07/14/2023 Active ZEPBOUND 7.5 MG/0.5 ML SUBCUTANEOUS PEN INJECTOR *[facility] and Interaction Alert[facility]* 07/14/2023 Active Mounjaro 7.5 MG/0.5ML Subcutaneous *Reorder f rom [facility] for eRx and Interaction Alerts* 07/14/2023 Active clonazePAM 0.5 MG Oral 07/14/2023 A ctive buPROPion HCl ER (XL) 150 MG Oral 07/14/2023 Active valACYclovir HCl 1 GM Oral 07/14/2023 Active RABEprazole Sodium 20 MG Oral 07/14/2023 Active Spironolactone 50 MG Oral 07/14/2023 Active Nitrofurantoin Monohyd Macro 100 MG Oral 07/14/2023 Active busPIRone HCl 15 MG Oral 07/14/2023 Active Mounjaro 5 MG/0.5ML Subcutaneous *[facility]* 07/14/2023 Active Benzonatate 200 MG Oral 07/14/2023 Active FLUoxetine HCl 20 MG Oral 07/14/2023 Active Ondansetron 4 MG Oral 07/14/2023 Ac tive metroNIDAZOLE 500 MG Oral 07/14/2023 Active FLUoxetine HCl 10 MG Oral 07/14/2023 Active QUEtiapine Fumarate 25 MG Oral 07/14/2023 Active Ozempic (0.25 or 0.5 MG/DOSE) 2 MG/3ML Subcutaneous *[facility]RX* 07/14/2023 Active Estarylla 0.25-35 MG-MCG Oral 07/14/2023 Active FLUoxetine HCl 40 MG Oral 07/14/2023 Active Tobramycin 0.30% Ophthalmic 07/14/2023 A ctive Oseltamivir Phosphate 75 MG Oral 07/14/2023 Active HYDROcodone-Acetaminop hen 5-325 MG Oral 07/14/2023 Active Hyoscyamine Sulfate 0.125 MG Oral 07/14/2023 Active busPIRone HCl 10 MG Oral 07/14/2023 Active LORazepam 0.5 MG Oral 07/14/2023 Ac tive Cyclobenzaprine HCl 10 MG Oral 07/14/2023 Active Social History Sex Assigned At : Social History Observation Description Sex Assigned At Female Encounters Encounter Location Date Provider Diagnosis [address] [address] 2023 Provider Migration Plan Of Treatment No Information Progress Notes * ELIDA MCKEON MDOB:[birth year] (38 yo F)Acc No.[id number] Patient:?ELIDA MCKEON :1985???Age:37 Y???Sex:Female Address:[address] [place] [address] Subjective: * Chief Complaints: * ???EMR-Manuel * Medical History:? * Se[employer] Work[employer] History:?Migrated GYNHis tory?Migrated GYNHistory:: Abnormal Pap: N Modified Date:07/27/2022,Age at First Child: 20 Modified Date:07/27/2022,Age at Menarche: 13 Modified Date:07/27/2022,LMP: Unknown Modified Date:07/27/2022,Sexual Problems: N Modified Date:07/27/2022,Sexually Active: Y Modified Date:07/27/2022, .? * Surgical History:?Other 2 c- sections, wisdom teeth, ganglion cyst left wrist * Hospitalization/Major Diagno stic Procedure:? * Family History:?Maternal Unc le: Diabetes mellitus , Substance abuse , Alcohol abuse .?Mother: Bipolar disorder , Depressive disorder , Anxiety disorder .?Maternal Grandmother: Diabetes mellitus .? * Social History:?Migrated Social History:?Migrated Social History: Alcohol Intake: Occasional 07/27/2022,Tobacco Years: Never smoker 07/27/2022. * Medications:?TakingQUEtiapin e Fumarate 25 MG Tablet Oral Benzonatate 200 MG Capsule Oral FLUoxetine HCl 20 MG Capsule Oral busPIRone HCl 15 MG Tablet Oral Spironolactone 50 MG Tablet Oral valACYclovir HCl 1 GM Tablet Oral buPROPion HCl ER (XL) 150 MG Tablet Extended Release 24 Hour Oral Ibuprofen 800 MG Tablet Oral rOPINIRole HCl 0.5 MG Tablet Oral ZEPBOUND 7.5 MG/0.5 ML SUBCUTANEOUS PEN INJECTOR , Notes to Pharmacist: *[facility] for [facility]Rx and Interaction Alerts*clonazePAM 0.5 MG Tablet Oral RABEprazole Sodium 20 MG Tablet Delayed Release Oral Mounjaro 7.5 MG/0.5ML Solution Pen-injector Subcutaneous , Notes to Pharmacist: *[facility] for eRx and Interaction Alerts*Ondansetron 4 MG Tablet Disintegrating Oral Spironolactone 25 MG Tablet Oral FLUoxetine HCl 40 MG Capsule Oral Cyclobenzaprine HCl 10 MG Tablet Oral LORazepam 0.5 MG Tablet Oral Hyoscyamine Sulfate 0.125 MG Tablet Disintegrating Oral Nitrofurantoin Monohyd Macro 100 MG Capsule Oral Mounjaro 5 MG/0.5ML Solution Pen-injector Subcutaneous , Notes to Pharmacist: *[facility] for eRx and Interaction Alerts*Ozempic (0.25 or 0.5 MG/DOSE) 2 MG/3ML Solution Pen-injector Subcutaneous , Notes to Pharmacist: *Pick strength-form from [facility] for eRX*Oseltamivir Phosphate 75 MG Capsule Oral FLUoxetine HCl 10 MG Capsule Oral metroNIDAZOLE 500 MG Tablet Oral busPIRone HCl 10 MG Tablet Oral HYDROcodone-Acetaminophen 5-325 MG Tablet Oral Tobramycin 0.30% Solution Ophthalmic Estarylla 0.25-35 MG-MCG Tablet Oral Taking QUEtiapine Fumarate 25 MG Tablet Oral Taking Benzonatate 200 MG Capsule Oral Taking FLUoxetine HCl 20 MG Capsule Oral Taking busPIRone HCl 15 MG Tablet Oral Taking Spironolactone 50 MG Tablet Oral Taking valACYclovir HCl 1 GM Tablet Oral Taking buPROPion HCl ER (XL) 150 MG Tablet Extended Release 24 Hour Oral Taking Ibuprofen 800 MG Tablet Oral Taking rOPINIRole HCl 0.5 MG Tablet Oral Taking ZEPBOUND 7.5 MG/0.5 ML SUBCUTANEOUS PEN INJECTOR , Notes to Pharmacist: *Reorder from [facility] for eRx and Interaction Alerts*Taking clonazePAM 0.5 MG Tablet Oral Taking RABEprazole Sodium 20 MG Tablet Delayed Release Oral Taking Mounjaro 7.5 MG/0.5ML Solution Pen-injector Subcutaneous , Notes to Pharmacist: *Reorder from [facility] for eRx and Interaction Alerts*Taking Ondansetron 4 MG Tablet Disintegrating Oral Taking Spironolactone 25 MG Tablet Oral Taking FLUoxetine HCl 40 MG Capsule Oral Taking Cyclobenzaprine HCl 10 MG Tablet Oral Taking LORazepam 0.5 MG Tablet Oral Taking Hyoscyamine Sulfate 0.125 MG Tablet Disintegrating Oral Taking Nitrofurantoin Monohyd Macro 100 MG Capsule Oral Taking Mounjaro 5 MG/0.5ML Solution Pen-injector Subcutaneous , Notes to Pharmacist: *Reorder from [facility] for eRx and Interaction Alerts*Taking Ozempic (0.25 or 0.5 MG/DOSE) 2 MG/3ML Solution Pen-injector Subcutaneous , Notes to Pharmacist: *Pick strength-form from [facility] for eRX*Taking Oseltamivir Phosphate 75 MG Capsule Oral Taking FLUoxetine HCl 10 MG Capsule Oral Taking metroNIDAZOLE 500 MG Tablet Oral Taking busPIRone HCl 10 MG Tablet Oral Taking HYDROcodone-Acetaminophen 5-325 MG Tablet Oral Taking Tobramycin 0.30% Solution Ophthalmic Taking Estarylla 0.25-35 MG-MCG Tablet Oral * Allergies:?INFLUENZA A (H5N1 ) VIRUS VACCINE MONOVAL (18 YR +): Allergy - Onset Date 07/14/2023eglan: Allergy - Onset Date 07/14/2023 Objective: * Vitals:? * Physical Examination:? Assessment: Plan: * Treatment: * Procedure Codes:? * true * Date:? 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
--- OUTSIDE RECORDS SUMMARY | 2024-06-17 15:29 | XMS_ITS | Continuity of Care Document ---
Author Name [facility] Organization [facility] Care Team Providers Care Packing Machine Feeder Name Role Phone [facility] Unavailable Unavailable Problems Combined list of problems from Department of [facility] and [facility] facilities. It does not include entries that were removed or entered in error. Problem Status Onset Date Problem Type Date of Resolution Comments Source visit for: routine adult H&P Inactive Condition [facility] joint pain in both wrists Active Condition [facility] dyspepsia Active Condition [facility] vitamin D deficiency Active Condition [facility] Patient Counseling: Active Condition [facility] Patient Ed Facilitate Preg Discuss Timing Of Peak Fertility Active Condition [facility] feeling tired Active Condition [facility] snoring Active Condition [facility] Overweight Active Condition [facility] improper nourishment during Inactive Condition [facility] Family history of other condition Active Condition [facility] Allergies, Adverse Reactions, Alerts Combined list of allergies from Department of [facility] and [facility] facilities. It does not include entries that were removed or entered in error. Substance Category Reaction Severity Reaction type Status Date Reported Comments Source [facility] Drug allergy (disorder) Unknown active 10/31/2013 [facility] Encounters Combined list of: 1) Encounters from Department of Veterans Affairs facilities going back up to thelast 18 months. 2) Encounters from the Department of [facility] facilities going back up to 280 months. Location Location Details Encounter Type Encounter Number Reason For Visit Attending Provider ADM Date DC Date Status Disposition Source [facility]) OUTPATIENT [id number] Critical access hospital [facility] Ram 10/09 Released w/o Limitations [facility]( [facility]) [facility]) TELE CONSULT [id number] Notes Entered by: Dory TINOCO 16 Oct 2013 1348 ------- ------- ------- ------- -- Corie castaneda / call back FEDE CHOWDHURY 10/16 [facility]( [facility]) [facility]) TELE CONSULT [id number] Notes Entered by: JUSTIN RANGELJACOBO DELL 19 Oct 2013 0832 ------- ------- ------- ------- -- I] DAVID pt called with c/o resp van ROWLEY KANDI TRE 10/19 [facility]( [facility]) Procedures Combined list of: 1) Procedures from [facility] facilities [facility], not all VA non-surgical procedures are included; 2) All procedures from the Department of Defense facilities. Procedure Procedure Type Code Date Perfomer Comments Sourc e ELECTROCARDIOGRAM, ROUTINE ECG WITH AT LEAST 12 LEADS; WITH INTERPRETATION AND REPORT 10/19/2013 [facility] TELE ASSESS & MGT SRV PROV QUAL NONPHYS HLTH CARE PRO TO EST PAT,PARENT,GUARD NOT ORIG REL ASSESS & MGT SRV PROV W/IN PREV 7 DAYS NOR LEAD ASSESS & MGT SRV/PX W/IN NXT 24 HR/SOON APT;5-10 MIN MED DIS 10/16/2013 [facility] Non-Physician Phone Call To Patient/Provider Brief (5-10min) Non-Physician Phone Call To Patient/Provider Brief (5-10min) [id number] 10/29/2013 FEDE CHOWDHURY [facility] Social History Combined list of available smoking, tobacco, and other social history from Department of Defense and Veterans Affairs facilities. Social History Type Response Date Comment Sourc e This section is an empty social history section. [facility]
--- OUTSIDE RECORDS SUMMARY | 2024-06-17 15:29 | XMS_ITS | Patient Health Record ---
Author Organization [facility] Address [address] [place] [address] Care Team Providers Care Application Chemist Name Role Phone Maria Guadalupe Posey Unavailable [phone] Migration, Provider Unavailable Unavailable Reason For Referral No Information Medications Medication SIG (Take, Route, Frequency, Duration) Notes Start Date End Date Status Hyoscyamine Sulfate 0.125 MG Oral 07/14/2023 Active Nitrofurantoin Monohyd Macro 100 MG Oral 07/14/2023 Active LORazepam 0.5 MG Oral 07/14/2023 Ac tive Oseltamivir Phosphate 75 MG Oral 07/14/2023 Active Cyclobenzaprine HCl 10 MG Oral 07/14/2023 Active clonazePAM 0.5 MG Oral 07/14/2023 A ctive Benzonatate 200 MG Oral 07/14/2023 Active HYDROcodone-Acetaminop hen 5-325 MG Oral 07/14/2023 Active rOPINIRole HCl 0.5 MG Oral 07/14/2023 Active Ibuprofen 800 MG Oral 07/14/2023 Ac tive FLUoxetine HCl 40 MG TAKE 1 CAPSULE BY MOUTH EVERY MORNING for 15 days schedule appt for further refills Active busPIRone HCl 10 MG Oral 07/14/2023 Active FLUoxetine HCl 20 MG 1 capsule Oral Once a day for 15 days schedule appt for further refills Active Mounjaro 5 MG/0.5ML Subcutaneous *Reorder fro m [facility] for eRx and Interaction Alerts* 07/14/2023 Active QUEtiapine Fumarate 25 MG 1 tablet at bedtime Oral Once a day for 15 days schedule appt for further refills Active busPIRone HCl 15 MG 1 tablet Oral Twice a day for 15 days schedule appt for further refills Active Ozempic (0.25 or 0.5 MG/DOSE) 2 MG/3ML Subcutaneous *Pick strength-form from [facility] for eRX* 07/14/2023 Active buPROPion HCl ER (XL) 150 MG Oral 07/14/2023 Active valACYclovir HCl 1 GM Oral 07/14/2023 Active Spironolactone 50 MG Oral 07/14/2023 Active ZEPBOUND 7.5 MG/0.5 ML SUBCUTANEOUS PEN INJECTOR *Reorder from [facility] for eRx and Interaction Alerts* 07/14/2023 Active Spironolactone 25 MG Oral 07/14/2023 Active RABEprazole Sodium 20 MG Oral 07/14/2023 Active Mounjaro 7.5 MG/0.5ML Subcutaneous *Reorder f rom [facility] for eRx and Interaction Alerts* 07/14/2023 Active Ondansetron 4 MG Oral 07/14/2023 Ac tive Estarylla 0.25-35 MG-MCG Oral 07/14/2023 Active Tobramycin 0.30% Ophthalmic 07/14/2023 A ctive metroNIDAZOLE 500 MG Oral 07/14/2023 Active FLUoxetine HCl 10 MG Oral 07/14/2023 Active Social History Sex Assigned At : Social History Observation Description Sex Assigned At Female Vital Signs Heart Rate 79 /min 07/14/2023 Height-cm 165.74 cm 07/14/2023 Blood pressure diastolic 70 mm Hg 07/14/2023 Weight-kg 72.57 kg 07/14/2023 Height 65.25 in 07/14/2023 Blood pressure systolic 105 mm Hg 07/14/2023 Weight 160.00 lbs 07/14/2023 BMI 26.4 kg/m2 07/14/2023 Encounters Encounter Location Date Provider Diagnosis [facility] [address] [facility] [address] [place] [address] 07/14/2023 Maria Guadalupe Posey Post-traumatic stress disorder, chronic F43.12 ; Insomnia due to other mental disorder F51.05 ; Panic disorder [episodic paroxysmal anxiety] without agoraphobia F41.0 ; Major depressive disorder, recurrent, mild F33.0 and Generalized anxiety disorder F41.1 [facility] [address] [place] [address] 06/24/2023 Provider [facility], [facility] [address] [place] [address] 07/13/2023 Provider [facility], [facility] [address] [place] [address] 07/22/2023 Provider [facility], [facility] [address] [place] [address] 07/31/2023 Provider [facility], [facility] [address] [place] [address] 08/29/2023 Provider [facility], [facility] [address] [place] [address] 09/06/2023 Provider [facility], [facility] [address] [place] [address] 09/22/2023 Provider [facility], [facility] [address] [place] [address] 10/04/2023 Provider [facility], [facility] [address] [place] [address] 10/11/2023 Provider [facility], [facility] [address] [place] [address] 11/05/2023 Provider [facility], [facility] [address] [place] [address] 2023 Provider [facility], [facility] [address] [place] [address] 11/08/2023 Provider [facility], [facility] [address] [place] [address] 12/29/2023 Maria Guadalupe Posey Assessments Encounter Date Diagnosis (ICD Code) Assessment Notes Treatment Notes Treatment Clinical Notes Section Notes 07/14/2023 Major depressive disorder, recurrent, mild (ICD-10 - F33.0) 07/14/2023 Generalized anxiety disorder (ICD-10 - F41.1) 07/14/2023 Post-traumatic stress disorder, chronic (ICD-10 - F43.12) 07/14/2023 Insomnia due to other mental disorder (ICD-10 - F51.05) 07/14/2023 Panic disorder [episodic paroxysmal anxiety] without agoraphobia (ICD-10 - F41.0) Plan Of Treatment No Information Insurance Providers Payer Name Payer Address Payer Phone Subscriber Number Group Number Insured Name Patient Relationship to Insured Coverage Start Date Coverage End Date [facility] [address] [place] [address] [id number] AUGUSTO MCKEON Spouse - patient is the spouse of the insured Medical (General) History Surgical History Surgery Date(Month/Year) Other 2 c-sections, wisdom teeth, gangli on cyst left wrist
--- OUTSIDE RECORDS SUMMARY | 2024-06-17 15:29 | XMS_ITS | Data Portability ---
Author Organization [employer], Main Office Address [address] [place] [address] Care Team Providers Care It Application Administrator Name Role Phone BREE SPENCER Primary Care Provider [phone] BREE SPENCER Referring Provider [phone] Assessment No assessment recorded. Plan of Treatment Reminders Order Date Submit Date Provider Last Modified By Organization Details Last Modified Time Details Appointments None recorded. Lab RYAN (antinuclea r antibodies) screen, serum 2022 023 [facility], [address] [place] [address], [address] [place] [address], [address], 3 07:53:08 rf (rheumatoid factor), serum [address], [address] [place] [address], [address], [address], 3 12:42:54 C-reactive protein, quantitativ e, serum or plasma [address], [address] [place] [address], [address], [address], 3 12:42:54 ESR (erythrocyt e sedimentati on rate), blood 2022 023 [facility], [address] [place] [address], [address], [address], 3 23:04:56 ccp (cyclic citrullinat ed peptide) igg, serum 2022 023 [facility], [address] [place] [address], [address] [place] [address], [address], 3 15:44:05 testosteron e, free + total, serum [address], [address] [place] [address], [facility], [place], [address], 3 12:42:20 dhea-sulfat e, serum [address], [address] [place] [address], [facility], [place], [address], 3 12:42:20 insulin, serum [address], [address] [place] [address], [facility], [place], [address], 3 12:42:20 CMP, serum or plasma [address], [address] [place] [address], [address] [place] [address], [address], 3 12:42:20 TSH + free T4, serum [address], [address] [place] [address], [address] [place] [address], [address], 3 12:42:20 Referral None recorded. Procedures None recorded. Surgeries None recorded. Imaging None recorded. Medication Orders None recorded. Patient TargetsNo targets recorded. Patient InstructionsNo instructions recorded. Reason for Referral None Reported. Results Created Date Observation Date Name Description Value Unit Range Abnormal Flag Note LastModifiedBy Organization Detail LastModifiedTime 04/19/20 22 04/18/2022 XR, ankle , 3 or more view No observ ation record ed. [id number] Not Available 08/18/2022 07:36:05 04/19/20 22 04/18/2022 XR, foot, 3 or more view No observ ation record ed. [id number] Not Available 08/18/2022 07:36:05 Result Notes None recorded. Problems Name Problem SNOMED Code Status Onset Date Resolution Date Notes Provider Name and Address Organization Details Recorded Time Sprain of right ankle 9826422037863 9105 Active 2021 Not Available [facility] 3 07:30:26 Sprain of left ankle 2265958994335 9105 Active 2021 Not Available [facility] 3 07:30:26 Pain of left ankle joint 7545658654986 9103 Active 2021 Not Available [facility] 3 07:30:26 Ankle joint pain 860912257 Active 2021 Not Available [facility] 3 07:30:27 Ankle joint pain 172823670 Active 2021 Not Available [facility] 3 07:30:27 Polycystic ovary syndrome 329102776 Active 2021 Not Available [facility] 3 07:30:27 Thyroid nodule 227997853 Active 2021 Not Available [facility] 3 07:30:27 Goiter 6888854 Active 2021 Not Available [facility] 3 07:30:27 Impaired fasting glycemia 084953597 Active 2021 Not Available [facility] 3 07:30:27 Hypercorti solism 70869357 Active 2021 Not Available [facility] 3 07:30:27 Sprain of foot 18205626 Active Not Available [facility] 3 07:30:27 Prediabete s 980534744 Active 2021 Not Available [facility] 3 07:30:28 Irregular periods 96995846 Active Not Available [facility] 3 07:30:28 Fatigue 29347313 Active 2021 Not Available [facility] 3 07:30:28 Weight gain 9271012 Active 2021 Not Available [facility] 3 07:30:28 Arthritis 1329177 Active 2022 Raissa Malave MD [address] [place] [address], [place] [address], [place], [address] , [facility] [employer] [facility] 3 12:40:32 Problem Notes None recorded. Procedures Surgical History Date Name Laterality Status Provider Name and Address Organization Details Recorded Time section completed Not Available [facility] 08/18/2022 07:26:19 [place] [facility] completed Not Available formerly [facility] 08/18/2022 07:26:19 excision of ganglion cyst completed Not Available [facility] 08/18/2022 07:26:19 Imaging Results Imaging Date Name Status LastModified by Organiz ation Details LastModified Time 04/18/2022 XR, ankle, 3 or more view completed [id number] Information not available 08/18/2022 07:36:05 04/18/2022 XR, foot, 3 or more view completed [id number] Information not available 08/18/2022 07:36:05 Procedure Notes None recorded. Medical Equipment None Reported. Allergies Allergen ID Allergen Name Allergen Category Reaction Reaction Severity Criticality Documentation Date Start Date Code Code System Note Provider Name and Address Organization Details Recorded Time 31451 Reglan medicatio n itching Not available Not available 08/18/2022 9230 RxNorm Not Available [facility] 07:35:58 Medications Name Sig Start Date Stop Date Status Note LastModified by Organization Details LastModified Time quetiapine 25 mg tablet TAKE 1 TO 2 TABLETS BY MOUTH EVERY NIGHT AT BEDTIME active Not Available Not Available No t Available fluoxetine 40 mg capsule TAKE 1 CAPSULE BY MOUTH EVERY DAY IN THE MORNING active Not Available Not Available No t Available cyclobenzap rine 10 mg tablet TAKE 1 TABLET BY MOUTH EVERY NIGHT AT BEDTIME NEEDED FOR MUSCLE SPASM 09/21 completed Not Available Not Available Not Available methocarbam ol 500 mg tablet TAKE 1 TABLET BY MOUTH FOUR TIMES DAILY NEEDED FOR SPASMS active Not Available Not Available No t Available buspirone 5 mg tablet TAKE 1 TABLET BY MOUTH TWICE DAILY active Not Available Not Available No t Available metformin 500 mg tablet TK 1 T PO BID 07/12 completed Not Available Not Available Not Available rabeprazole 20 mg tablet,keya yed release TAKE 1 TABLET BY MOUTH TWICE DAILY active Not Available Not Available No t Available trazodone 50 mg tablet 04/18 completed Not Available Not Available Not Available azithromyci n 250 mg tablet TK 2 TS PO ON DAY 1, THEN TK 1 T PO D FOR 4 DAYS active Not Available Not Available No t Available ibuprofen 800 mg tablet TAKE 1 TABLET BY MOUTH THREE TIMES DAILY WITH FOOD 07/31 completed Not Available Not Available Not Available Mentax 1 % topical cream active Not Available Not Available Not Available clomiphene citrate 50 mg tablet TK 1 T PO QD ON DAYS 3 THROUGH 7 OF CYCLE active Not Available Not Available No t Available valacyclovi r 1 gram tablet TAKE 1 TABLET BY MOUTH EVERY 8 HOURS FOR 7 DAYS 07/31 completed Not Available Not Available Not Available hydrocodone 5 mg-acetamin ophen 325 mg tablet TAKE 1 TABLET BY MOUTH EVERY 6 HOURS NEEDED FOR PAIN 09/21 completed Not Available Not Available Not Available metronidazo le 0.75 % (37.5 mg/5 gram) vaginal gel Insert 1 applicato rful every day by vaginal route for 5 days. active Not Available Not Available No t Available clonazepam 0.5 mg tablet TAKE 1 TABLET BY MOUTH DAILY 04/20 completed Not Available Not Available Not Available sertraline 100 mg tablet TAKE 1 TABLET BY MOUTH DAILY 09/21 completed Not Available Not Available Not Available phentermine 15 mg capsule active Not Available Not Available Not Available diphenoxyla te-atropine 2.5 mg-0.025 mg tablet TAKE 2 TABLETS BY MOUTH FOUR TIMES DAILY NEEDED FOR DIARRHEA 04/20 completed Not Available Not Available Not Available sulfamethox azole 800 mg-trimetho prim 160 mg tablet TAKE 1 TABLET BY MOUTH TWICE DAILY FOR 7 DAYS 07/31 completed Not Available Not Available Not Available doxycycline monohydrate 100 mg tablet Take 1 tablet(s) twice daily by oral route 2 days before, day of, 2 days following HSG active Not Available Not Available No t Available triamcinolo ne acetonide 0.1 % topical cream APPLY TOPICALLY TO THE AFFECTED AREA TWICE DAILY 04/20 completed Not Available Not Available Not Available spironolact one 25 mg tablet TAKE 1 TABLET BY MOUTH TWICE A DAY active Not Available Not Available No t Available bupropion HCl SR 100 mg tablet,12 hr sustained-r elease TK 1 T PO QD 04/18 completed Not Available Not Available Not Available amoxicillin 500 mg tablet TAKE 1 TABLET BY MOUTH EVERY 8 HOURS 07/31 completed Not Available Not Available Not Available lamotrigine 25 mg tablet TK 3 TS PO BID 04/18 completed Not Available Not Available Not Available ketorolac 10 mg tablet TAKE 1 TABLET BY MOUTH EVERY 6 HOURS NEEDED FOR PAIN 07/31 completed Not Available Not Available Not Available amoxicillin 875 mg tablet TAKE 1 TABLET BY MOUTH EVERY 12 HOURS active Not Available Not Available No t Available citalopram 20 mg tablet TK 1 T PO QD 04/18 completed Not Available Not Available Not Available lorazepam 0.5 mg tablet TAKE 1 TABLET BY MOUTH TWICE DAILY NEEDED FOR ANXIETY 09/21 completed Not Available Not Available Not Available ropinirole 0.25 mg tablet TAKE 1 TABLET BY MOUTH EVERY DAY AT BEDTIME active Not Available Not Available No t Available dexamethaso ne 1 mg tablet take 10 p.m. the night before cortisol test active Not Available Not Available No t Available benzonatate 100 mg capsule active Not Available Not Available Not Available rizatriptan 10 mg disintegrat ing tablet 04/20 completed Not Available Not Available Not Available hyoscyamine 0.125 mg disintegrat ing tablet DISSOLVE 1 TABLET ON THE TONGUE EVERY 4 HOURS NEEDED FOR INDIGESTI ON 04/20 completed Not Available Not Available Not Available cephalexin 500 mg capsule TAKE 1 CAPSULE BY MOUTH EVERY 6 HOURS 07/31 completed Not Available Not Available Not Available pantoprazol e 40 mg tablet,keya yed release TK 1 T PO QD 07/12 completed Not Available Not Available Not Available erythromyci n 5 mg/gram (0.5 %) eye ointment APPLY SMALL AMOUNT IN BOTH EYES THREE TIMES DAILY active Not Available Not Available No t Available tobramycin 0.3 % eye drops INSTILL 1 DROP IN RIGHT EYE EVERY 4 HOURS active Not Available Not Available No t Available ropinirole 0.5 mg tablet TAKE 3 TABLETS BY MOUTH EVERY DAY AT BEDTIME active Not Available Not Available No t Available prednisone 50 mg tablet TAKE 1 TABLET BY MOUTH DAILY FOR 5 DAYS active Not Available Not Available No t Available Advair Diskus 250 mcg-50 mcg/dose powder for inhalation INHALE 1 PUFF BY MOUTH TWICE DAILY 07/31 completed Not Available Not Available Not Available progesteron e micronized 200 mg capsule TK 2 CS PO QD HS FOR 10 DAYS 04/18 completed Not Available Not Available Not Available fluoxetine 10 mg capsule TAKE 1 CAPSULE BY MOUTH EVERY DAY IN THE MORNING active Not Available Not Available No t Available gabapentin 300 mg capsule TAKE 1 CAPSULE BY MOUTH TWICE DAILY 07/31 completed Not Available Not Available Not Available diclofenac sodium 75 mg tablet,keya yed release Take 1 tablet twice a day by oral route. active Not Available Not Available No t Available montelukast 10 mg tablet TAKE 1 TABLET BY MOUTH EVERY NIGHT AT BEDTIME 07/31 completed Not Available Not Available Not Available codeine 10 mg-guaifene sin 100 mg/5 mL oral liquid TAKE 10 ML BY MOUTH EVERY DAY AT BEDTIME NEEDED FOR COUGH active Not Available Not Available No t Available azelastine 137 mcg (0.1 %) nasal spray USE 1 SPRAY IN EACH NOSTRIL EVERY 12 HOURS 04/20 completed Not Available Not Available Not Available ibuprofen 600 mg tablet TK 1 T PO Q 6 H PRF PAIN. TK WITH FOOD 04/18 completed Not Available Not Available Not Available methylpredn isolone 4 mg tablets in a dose pack FOLLOW PACKAGE DIRECTION S 07/31 completed Not Available Not Available Not Available albuterol sulfate HFA 90 mcg/actuati on aerosol inhaler INHALE 2 PUFFS BY MOUTH EVERY 4 TO 6 HOURS NEEDED FOR SHORTNESS OF BREATH OR WHEEZING active Not Available Not Available No t Available ondansetron 4 mg disintegrat ing tablet DISSOLVE 1 TO 2 TABLETS ON THE TONGUE EVERY 8 HOURS NEEDED FOR NAUSEA OR VOMITING 04/20 completed Not Available Not Available Not Available fluoxetine 20 mg capsule TAKE 1 CAPSULE BY MOUTH EVERY DAY IN THE MORNING active Not Available Not Available No t Available fluticasone propionate 50 mcg/actuati on nasal spray,suspe nsion SHAKE LIQUID AND USE 2 SPRAYS IN EACH NOSTRIL DAILY NEEDED FOR NASAL CONGESTIO N 07/31 completed Not Available Not Available Not Available sertraline 50 mg tablet TAKE 1 TABLET BY MOUTH DAILY 07/31 completed Not Available Not Available Not Available lamotrigine 100 mg tablet 04/18 completed Not Available Not Available Not Available naproxen 500 mg tablet TAKE 1 TABLET BY MOUTH TWICE DAILY 09/21 completed Not Available Not Available Not Available spironolact one 50 mg tablet TAKE 1 TABLET BY MOUTH EVERY DAY 09/21 completed Not Available Not Available Not Available amoxicillin 875 mg-potassiu m clavulanate 125 mg tablet TAKE 1 TABLET BY MOUTH TWICE DAILY 07/31 completed Not Available Not Available Not Available escitalopra m 10 mg tablet active Not Available Not Available Not Available escitalopra m 20 mg tablet active Not Available Not Available Not Available bupropion HCl XL 300 mg 24 hr tablet, extended release TAKE 1 TABLET BY MOUTH EVERY MORNING 04/20 completed Not Available Not Available Not Available bupropion HCl XL 150 mg 24 hr tablet, extended release TAKE 1 TABLET BY MOUTH EVERY MORNING 04/20 completed Not Available Not Available Not Available Dulera 200 mcg-5 mcg/actuati on HFA aerosol inhaler INHALE 2 PUFFS TWICE DAILY. RINSE MOUTH AFTER USE 07/31 completed Not Available Not Available Not Available Viibryd 20 mg tablet 04/18 completed Not Available Not Available Not Available Estarylla 0.25 mg-35 mcg tablet TAKE 1 TABLET BY MOUTH EVERY DAY active Not Available Not Available No t Available Ozempic 0.25 mg or 0.5 mg (2 mg/1.5 mL) subcutaneou s pen injector INJECT 0.5MG UNDER THE SKIN ONCE WEEKLY FOR 28 DAYS 04/20 completed Not Available Not Available Not Available ID NOW COVID-19 Test Kit TEST DIRECTED 04/20 completed Not Available Not Available Not Available COVID-19 test specimen collection TEST DIRECTED 04/20 completed Not Available Not Available Not Available Mounjaro 7.5 mg/0.5 mL subcutaneou s pen injector INJECT 7.5 MG UNDER THE SKIN WEEKLY active Not Available Not Available No t Available Mounjaro 5 mg/0.5 mL subcutaneou s pen injector Inject 5 mg every week by subcutane ous route for 84 days. 10/07 completed Not Available Not Available Not Available Mounjaro 2.5 mg/0.5 mL subcutaneou s pen injector INJECT 2.5 MG UNDER THE SKIN EVERY WEEK FOR 28 DAYS 04/20 completed Not Available Not Available Not Available Vitals Date Recorded Body mass index (BMI) Body height Oxygen saturation Oxygen saturation in Arterial blood by Pulse oximetry Heart rate Body temperature Body weight Systolic blood pressure Diastolic blood pressure Provider Name and Address Organization Details Last Updated DateTime 2 31.9 kg/m2 168.91 cm 97 % 97 % 80 /min 97.8 [degF] 71433.6 3 g 110 mm[Hg] 75 mm[Hg] Not Available [facility] 3 07:27:55 Date Recorded Body mass index (BMI) Body height Body weight Provider Name and Address Organization Details Last Updated DateTime 04/20/2022 30.8 kg/m2 168.91 cm 01654.92 g Not Available [facility] 08/18/2022 07:27:57 Date Recorded Body mass index (BMI) Body height Body weight Provider Name and Address Organization Details Last Updated DateTime 05/04/2022 31 kg/m2 168.91 cm 69672.51 g Not Available [facility] 08/18/2022 07:27:57 Date Recorded Body height Oxygen saturation Oxygen saturation in Arterial blood by Pulse oximetry Heart rate Body temperature Systolic blood pressure Diastolic blood pressure Provider Name and Address Organization Details Last Updated DateTime 2 168.91 cm 97 % 97 % 80 /min 97.8 [degF] 110 mm[Hg] 80 mm[Hg] Not Available [facility] 3 07:27:55 Date Recorded Body height Body mass index (BMI) Body weight Body temperature Heart rate Systolic blood pressure Diastolic blood pressure Provider Name and Address Organization Details Last Updated DateTime 3 168.91 cm 28.1 kg/m2 58027.4 1 g 97.5 [degF] 76 /min 125 mm[Hg] 79 mm[Hg] JOHNNY Neil [place] [facility] [place] [facility] 3 12:22:38 Social History Question Answer Notes LastModified by Organizat ion Details LastModified Time Tobacco Smoking Status Never Smoker Not Available [facility] 08/18/2022 07:26:03 What Is Your Level Of Alcohol Consumption? Occasional [id number] Information not available 08/18/2022 What Is Your Level Of Caffeine Consumption? None [id number] Information not available 08/18/2022 In The 14 Days Before Symptom Onset, Have You Had Close Contact With A Laboratory-confirm ed COVID-19 While That Case Was Ill? No [id number] Information not available 08/18/2022 In The 14 Days Before Symptom Onset, Have You Had Close Contact With A Person Who Is Under Investigation For COVID-19 While That Person Was Ill? No [id number] Information not available 08/18/2022 What Type Of Diet Are You Following? REGULAR [id number] Information not available 08/18/2022 What Is Your Relationship Status? [id number] Information not available 08/18/2022 Do You Use Any Illicit Or Recreational Drugs? No [id number] Information not available 08/18/2022 Have You Recently Traveled Abroad? No [id number] Information not available 08/18/2022 Do You Have Any Dietary Restrictions? No [id number] Information not available 08/18/2022 Sex: Female Functional Status None recorded. Mental Status None recorded. Family History Nothing Reported. Medical History No medical history recorded. Gynecological HistoryNo gynecological history recorded. Obstetrics History GPAL:G 0 P 0 0 0 0 Past Encounters Encounter ID Performer Location Encounter Start Date Encounter Closed Date Diagnosis/Indication Diagnosis SNOMED-CT Code Diagnosis ICD10 Code [id number] [facility] [address] [place] [address] 07/31/2021 00:00:00 07/31/2021 18:32:20 [id number] [facility] [address] [place] [address] 09/11/2021 00:00:00 09/11/2021 11:49:04 [id number] [facility] [address] [place] [address] 03/09/2022 00:00:00 03/09/2022 11:36:46 [id number] [facility] [address] [address] 04/20/2022 00:00:00 04/20/2022 09:57:02 [id number] [facility] [address] [address] 05/04/2022 00:00:00 05/04/2022 10:51:10 [id number] Raissa Malave MD [facility] [address] [place] [address] 09/23/2022 12:07:44 09/23/2022 12:47:02 Polycystic ovary syndrome 517991636 E28.2 Arthritis 7176223 M19.90 Health Concerns Section Related Observation LastModified by Organization Detai ls LastModified Time None Recorded Concern Status LastModified by Organization Details LastModified Time None Recorded Advance Directives Directive None Recorded Payers Encounter Date Sequence Insurance Name Policy Number Policy Medley Covered Member ID Medley Member ID Guarantor Name 09/23/2022 1 [employer] [id number] Yareli Edouard [id number] Yareli Edouard Notes Date Note Type Note Provider Name and Address Organization Details Recorded Time 09/23/2022 text/html 36 yo female com es in for follow up in management of hair loss/thinning/PCOS, impaired fasting glucose (A1C of 4.5%), and weight management. last seen in Feb at that time we stopped ozempic and transitioned to mounjaro 2.5 mg once weekly. we added spironolactone 50 mg daily for hair loss-she has to take 25 mg dose as the high dose makes her too nauseated. She has pleurisy and now taking methocarbamol. She is not sure how she got this. She is taking diclofenac as well and staying well hydrated. She is on a once a day rabeprazole. She has lost 51 pounds since 07/2021-she got sick on the ozempic and now taking mounjaro 7.5 mg once weekly and a little nauseated. She is on control and her cycles are regulated on these. She has lostlabs from 07/17/22:234/156/88/96gl ucose 94 mg/dlCr normalLFT normaltestosterone 73 ng/dLinsulin 7.2 uU/mlA1c of 4.5% Raissa Malave MD [address] [facility], [facility] [address], [place], [address], [place] [facility] [employer] [facility] [place] 09/23/2022 13:29:25 OBGyn Episode No OBEpisode recorded.
--- OUTSIDE RECORDS SUMMARY | 2024-06-17 15:29 | XMS_ITS ---
Author Organization [facility] [employer] Address [address] [facility] [address] [place] [address] Care Team Providers Care Machine Clipper Name Role Phone Maria Guadalupe Posey Unavailable [phone] REASON FOR VISIT Refills Medications Medication SIG (Take, Route, Fr equency, Duration) Notes Start Date End Date Status FLUoxetine HCl 40 MG 1 capsule every Morning Oral Once a day for 30 days PLEASE SCHEDULE APPT FOR FURTHER REFILLS 07/14/2023 Active Social History Sex Assigned At : Social History Observation Description Sex Assigned At Female Encounters Encounter Location Date Provider Diagnosis [facility] [address] [address] 12/29/2023 Maria Guadalupe Posey Plan Of Treatment Medication Medication Name Sig Start Date Stop Date Notes FLUoxetine HCl 40 MG 1 capsule every Mor joyce Oral Once a day for 30 days 07/14/2023 Progress Notes * ELIDA MCKEON MDOB:[birth year] (38 yo F)Acc No.[id number]:12/29/2023 Patient:?ELIDA MCKEON :1985???Age:38 Y???Sex:Female Address:[address] [place] [address], [address] * Refills? Refill FLUoxetine HCl Capsule, 40 MG, Oral, 30 Capsule, 1 capsule every Morning, Once a day, 30 days, Refills=0 Subjective: * Chief Complaints: * ???Refills * Medical History:? * Surgical History:? * Hospitalization/Major Diagno stic Procedure:? * Medications:? Objective: * Vitals:? * Physical Examination:? Assessment: Plan: * Treatment: * Procedure Codes:? * true * Date:? Generated for Isaac field/Bessie/Azra on:?06/17/2024 03:28 PM [employer]
--- OUTSIDE RECORDS SUMMARY | 2024-06-17 15:29 | XMS_ITS ---
Author Organization [facility] Address [address] [facility] [address] [place] [address] Care Team Providers Care Powder Worker Tnt Name Role Phone Migration, Provider Unavailable Unavailable REASON FOR VISIT TelEnc Social History Sex Assigned At : Social History Observation Description Sex Assigned At Female Encounters Encounter Location Date Provider Diagnosis [facility] [employer] [address] [address] 11/08/2023 Provider Migration Plan Of Treatment No Information Progress Notes * ELIDA MCKEON MDOB:[birth year] (38 yo F)Acc No.[id number]:11/08/2023 Patient:?ELIDA MCKEON :1985???Age:38 Y???Sex:Female Address:[address] [place] [address] Subjective: * Chief Complaints: * ???TelEnc * Medical History:? * Surgical History:? * Hospitalization/Major Diagno stic Procedure:? * Medications:? Objective: * Vitals:? * Physical Examination:? Assessment: Plan: * Treatment: * Procedure Codes:? * true * Date:? Generated for Isaac field/Bessie/eTluzmariasmazul on:?06/17/2024 03:28 PM [employer]
--- OUTSIDE RECORDS SUMMARY | 2024-06-17 15:30 | XMS_ITS | Continuity of Care Document ---
Author Name [facility] Organization [facility] Care Team Providers Care Patternmaker Name Role Phone [facility] Unavailable Unavailable Problems Combined list of problems from Department of [facility] and [facility] facilities. It does not include entries that were removed or entered in error. Problem Status Onset Date Problem Type Date of Resolution Comments Source visit for: routine adult H&P Inactive Condition [facility] joint pain in both wrists Active Condition [facility] dyspepsia Active Condition [facility] vitamin D deficiency Active Condition [facility] Patient Counseling: Active Condition Do D Patient Ed Facilitate Preg Discuss Timing Of Peak Fertility Active Condition [facility] feeling tired Active Condition [facility] snoring Active Condition [facility] Overweight Active Condition [facility] improper nourishment during Inactive Condition [facility] Family history of other condition Active Condition [facility] Allergies, Adverse Reactions, Alerts Combined list of allergies from Department of [facility] and [facility] facilities. It does not include entries that were removed or entered in error. Substance Category Reaction Severity Reaction type Status Date Reported Comments Source REGLAN Drug allergy (disorder) Unknown active 10/31/2013 [facility] Encounters Combined list of: 1) Encounters from [facility] facilities going back up to thelast 18 months. 2) Encounters from the Department of [facility] facilities going back up to 280 months. Location Location Details Encounter Type Encounter Number Reason For Visit Attending Provider ADM Date DC Date Status Disposition Source [facility]) OUTPATIENT [id number] [facility] CHIRAG Ram 10/09 Released w/o Limitations [facility]( [facility]) [facility]) TELE CONSULT [id number] Notes Entered by: Dory TINOCO 16 Oct 2013 1348 ------- ------- ------- ------- -- Corie castaneda / call back FEDE CHOWDHURY 10/16 [facility]( [facility]) [facility]) TELE CONSULT [id number] Notes Entered by: JUSTIN RANGELJACOBO DELL 19 Oct 2013 0832 ------- ------- ------- ------- -- I] DAVID pt called with c/o resp van ROWLEY KANDI TRE 10/19 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 Social History Type Response Date Comment Sourc e This section is an empty social history section. DoD
== END 2024-06-10 12:26 | disposition home or self-care (01) ==
PROVIDERS: Emergency Provider Nurse Practitioner Family; PCP Internal Medicine
DX: J06.9 Acute upper respiratory infection, unspecified (principal); R09.82 Postnasal drip; K21.9 Gastro-esophageal reflux disease without esophagitis; M06.9 Rheumatoid arthritis, unspecified
CPT/HCPCS: 99213; G0463

== ENCOUNTER 2025-02-26 17:35 | Emergency (ER) | payer OTHER, SELFPAY ==
--- OUTSIDE RECORDS SUMMARY | 2025-02-26 17:37 | XMS_ITS | Patient Health Record ---
Author Organization [facility] Address [address] [place] [address] Support Name Relationship Address Phone TATIANAAUGUSTO Emergency Contact Unknown Unavail able ELIDA MCKEON Guarantor Unknown Reason For Referral No Information Medications Medication SIG (Take, Route, Frequency, Duration) Notes Start Date End Date Status Hyoscyamine Sulfate 0.125 MG Tablet Disintegrating Oral 07/14/2023 Active Nitrofurantoin Monohyd Macro 100 MG Capsule Oral 07/14/2023 Active LORazepam 0.5 MG Tablet Oral 07/14/2023 Active Oseltamivir Phosphate 75 MG Capsule Oral 07/14/2023 Active Cyclobenzaprine HCl 10 MG Tablet Oral 07/14/2023 Active clonazePAM 0.5 MG Tablet Oral 07/14/2023 Active Benzonatate 200 MG Capsule Oral 07/14/2023 Active HYDROcodone-Acetaminop hen 5-325 MG Tablet Oral 07/14/2023 Active rOPINIRole HCl 0.5 MG Tablet Oral 07/14/2023 Active Ibuprofen 800 MG Tablet Oral 07/14/2023 Active FLUoxetine HCl 40 MG Capsule TAKE 1 CAPSULE BY MOUTH EVERY MORNING; Duration: 15 days schedule appt for further refills Active busPIRone HCl 10 MG Tablet Oral 07/14/2023 Active FLUoxetine HCl 20 MG Capsule 1 capsule Oral Once a day; Duration: 15 days schedule appt for further refills Active Mounjaro 5 MG/0.5ML Solution Pen-injector Subcutaneous *Reorder from [employer] for eRx and Interaction Alerts* 07/14/2023 Active QUEtiapine Fumarate 25 MG Tablet 1 tablet at bedtime Oral Once a day; Duration: 15 days schedule appt for further refills Active busPIRone HCl 15 MG Tablet 1 tablet Oral Twice a day; Duration: 15 days schedule appt for further refills Active Ozempic (0.25 or 0.5 MG/DOSE) 2 MG/3ML Solution Pen-injector Subcutaneous *Pick strength-form from [facility] for eRX* 07/14/2023 Active buPROPion HCl ER (XL) 150 MG Tablet Extended Release 24 Hour Oral 07/14/2023 Active valACYclovir HCl 1 GM Tablet Oral 07/14/2023 Active Spironolactone 50 MG Tablet Oral 07/14/2023 Active ZEPBOUND 7.5 MG/0.5 ML SUBCUTANEOUS PEN INJECTOR *Reorder from [facility] for eRx and Interaction Alerts* 07/14/2023 Active Spironolactone 25 MG Tablet Oral 07/14/2023 Active RABEprazole Sodium 20 MG Tablet Delayed Release Oral 07/14/2023 Active Mounjaro 7.5 MG/0.5ML Solution Pen-injector Subcutaneous *Reorder from [facility] for eRx and Interaction Alerts* 07/14/2023 Active Ondansetron 4 MG Tablet Disintegrating Oral 07/14/2023 Active Estarylla 0.25-35 MG-MCG Tablet Oral 07/14/2023 Active Tobramycin 0.30% Solution Ophthalmic 07/14/2023 Active metroNIDAZOLE 500 MG Tablet Oral 07/14/2023 Active FLUoxetine HCl 10 MG Capsule Oral 07/14/2023 Active Social History Sex Assigned At : Social History Observation Description Sex Assigned At Female Social History Additional Details Category Social Info Options Details Migrated Social History Migrated Social History Alcohol Intake: Occasional 07/27/2022,Tobacco Years: Never smoker 07/27/2022 Plan Of Treatment No Information Insurance Providers Payer Name Payer Address Payer Phone Subscriber Number Group Number Insured Name Patient Relationship to Insured Coverage Start Date Coverage End Date [facility] [address] J CARLOS LEWIS [phone] [id number] [place] MCKEON Spouse - patient is the spouse of the insured Medical (General) History Surgical History Surgery Date(Month/Year) Other 2 c-sections, wisdom teeth, gangli on cyst left wrist
[2025-02-26 17:43] VITALS: BP 116/74; PULSE 83; RESP 18; TEMP 37.1; O2SAT 100
--- NOTE | 2025-02-26 18:29 | ED.GENADULT ---
HPI - General Adult General Chief complaint: Extremity Injury, Upper Stated complaint: Right Hand Pain Source: patient Mode of arrival: ambulatory Limitations: no limitations History of Present Illness HPI narrative: Patient presents for evaluation of right hand pain. 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 Symptoms subsided but she had a second episode shortly thereafter. 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 Today she woke from sleep with pain in the right hand. No identified precipitating event or injury. She states pain is constant, described as a dull ache and rated 5/10 in severity. The majority of her pain is in the 2nd-4th metacarpals and 2nd-4th digits. She states her hand appears swollen. Movement makes her symptoms worse. She has not tried any therapies to assist with her symptoms. She is left hand dominant. Related Data Allergies Allergy/AdvReac Type Severity Reaction Status Date / Time metoclopramide Allergy Severe swelling Verified 02/26/25 17:45 in hands and face clavulanic acid AdvReac Mild Nausea Verified 02/26/25 17:45 Review of Systems Review of Systems: CONSTITUTIONAL: Denies fever, chills, or sweats. EYES: Denies visual changes, redness, or discharge. ENT: Denies rhinorrhea, congestion, sore throat, or otalgia. CARDIOVASCULAR: Denies chest pain, palpitations, or edema. RESPIRATORY: Denies cough or dyspnea. GASTROINTESTINAL: Denies abdominal pain, nausea, vomiting, or diarrhea. GENITOURINARY: Denies dysuria or hematuria. SKIN: Denies rash or itching. MUSCULOSKELETAL: Reports right hand pain. Denies other musculoskeletal pain NEUROLOGIC: Denies headache, numbness, dizziness, or weakness. PSYCHIATRIC: Denies anxiety or depression. [facility] Past Medical History Medical History BMI 23.0-23.9, adult Nausea Epigastric pain Herpes zoster Hallux valgus of right foot Rheumatoid arthritis involving ankle Light headedness Chronic headaches GERD (gastroesophageal reflux disease) Anxiety Anxiety and depression Bipolar 2 disorder Surgical History Surgical History Previous section x2, 2007,2010 S/P wisdom tooth extraction Family History Family History Grandparent Diabetes mellitus Hypertension Mother Family history of rheumatoid arthritis Father Family history of coronary artery disease, Onset Age: 47 Acute myocardial infarction Sibling No problems noted. 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 HEAD: Normocephalic, atraumatic. EYES: PERRLA and EOMI. ENT: Nares clear, no rhinorrhea or epistaxis. Mucous membranes moist. Oropharynx without tonsillar hypertrophy exudate or other lesions. Bilateral TMs pearly valle nonbulging NECK: Supple. No adenopathy or masses. No carotid bruits or JVD CHEST: Clear to auscultation. No respiratory distress. No wheezes rales or rhonchi HEART: Regular rate and rhythm. No murmur heard. Normal peripheral pulses. ABDOMEN: Soft, nontender, nondistended, normal active bowel sounds. EXTREMITIES: Full range of motion of all digits the right hand. I do not appreciate any swelling. There is no deformity present. There is tenderness over the 2nd metacarpal. SKIN: Warm, dry, no rash. NEURO: No focal deficits. Alert and oriented x3. PSYCH: Normal mood and affect. Course Course Emergency Course: This is a 39-year-old female who presented for evaluation of right hand pain. There is no precipitating event or injury. There was no gross abnormality on exam. In fact she has full range of motion with no swelling present. I do not think a plain film would be beneficial. Neurovascularly she is intact. She may benefit from diclofenac gel and Velcro wrist splint. Reassurance was provided. If she has intractable pain she should go to the emergency department. Otherwise she should follow up with primary care. Pt in agreement with plan of care. Level of Care: Express Care Visit Vital Signs Vital signs: Vital Signs Temperature 37.1 C 02/26/25 17:43 Pulse Rate 83 02/26/25 17:43 Respiratory Rate 18 02/26/25 17:43 Blood Pressure 116/74 02/26/25 17:43 Pulse Oximetry 100 02/26/25 17:43 Oxygen Delivery Room Air 02/26/25 17:43 Temperature 37.1 C 02/26/25 17:43 Pulse Rate 83 02/26/25 17:43 Respiratory Rate 18 02/26/25 17:43 Blood Pressure 116/74 02/26/25 17:43 Pulse Oximetry 100 02/26/25 17:43 Oxygen Delivery Room Air 02/26/25 17:43 Medical Decision Making Vital Signs Vital Signs: Vital Signs Temperature 37.1 C 02/26/25 17:43 Pulse Rate 83 02/26/25 17:43 Respiratory Rate 18 02/26/25 17:43 Blood Pressure 116/74 02/26/25 17:43 Pulse Oximetry 100 02/26/25 17:43 Oxygen Delivery Room Air 02/26/25 17:43 Temperature 37.1 C 02/26/25 17:43 Pulse Rate 83 02/26/25 17:43 Respiratory Rate 18 02/26/25 17:43 Blood Pressure 116/74 02/26/25 17:43 Pulse Oximetry 100 02/26/25 17:43 Oxygen Delivery Room Air 02/26/25 17:43 Discharge Plan Discharge Clinical Impression: Overuse syndrome Patient Disposition: Home Condition: Stable Instructions: Antibiotic Form, Arthralgia (ED) Additional Instructions: PLEASE PURCHASE AND WEAR A VELCRO WRIST SPLINT TOPICAL DICLOFENAC SHOULD HELP WITH PAIN AND SWELLING MAKE SURE TO STAY WELL HYDRATED Patient Language: Malaysian Prescriptions: No Action buspirone 15 mg tablet 15 mg PO BID Qty: 60 6RF rabeprazole [AcipHex] 20 mg tablet,delayed release (DR/EC) 20 mg PO BID Qty: 180 1RF fluoxetine 40 mg capsule 40 mg PO DAILY Qty: 90 1RF fluoxetine 20 mg capsule 20 mg PO DAILY Qty: 90 1RF quetiapine 25 mg tablet See Rx Instructions .ROUTE .COMPLEX Qty: 90 1RF Dose Instruction: TAKE 1 TABLET BY MOUTH EVERY DAY AT BEDTIME Rx Instructions: TAKE 1 TABLET BY MOUTH EVERY DAY AT BEDTIME Wegovy 0.25 mg/0.5 mL pen injector 0.25 mg subcut WEEKLY Qty: 2 0RF Rx Instructions: administer weeks 1 through 4 of therapy Follow-up/Referrals: Timi Garza MD [Physician, Family Practice] Time of Disposition: 18:28
== END 2025-02-26 18:32 | disposition home or self-care (01) ==
PROVIDERS: Emergency Provider Nurse Practitioner
DX: M70.841 Other soft tissue disorders related to use, overuse and pressure, right hand (principal); M06.9 Rheumatoid arthritis, unspecified; K21.9 Gastro-esophageal reflux disease without esophagitis; F41.9 Anxiety disorder, unspecified; F31.9 Bipolar disorder, unspecified
CPT/HCPCS: 99211; G0463

== ENCOUNTER 2025-03-16 12:43 | Emergency (ER) | payer OTHER, SELFPAY ==
[2025-03-16 12:46] VITALS: BP 118/76; PULSE 101; RESP 16; TEMP 36.4; O2SAT 99
--- OUTSIDE RECORDS SUMMARY | 2025-03-16 12:47 | XMS_ITS | Patient Health Record ---
Author Organization [facility] Address [address] [place] [address] Support Name Relationship Address Phone TATIANAAUGUSTO Emergency [...] 5 MG/0.5ML Solution Pen-injector Subcutaneous *Reorder from [employer] for eRx and Interaction Alerts* 07/14/2023 Active QUEtiapine Fumarate 25 MG Tablet 1 tablet at bedtime Oral Once a day; Duration: 15 days schedule appt for further refills Active busPIRone HCl 15 MG Tablet 1 tablet Oral Twice a day; Duration: 15 days schedule appt for further refills Active Ozempic (0.25 or 0.5 MG/DOSE) 2 MG/3ML Solution Pen-injector Subcutaneous *Pick strength-form from [facility] for eRX* 07/14/2023 Active buPROPion HCl ER (XL) 150 MG Tablet Extended Release 24 Hour Oral 07/14/2023 Active valACYclovir HCl 1 GM Tablet Oral 07/14/2023 Active Spironolactone 50 MG Tablet Oral 07/14/2023 Active ZEPBOUND 7.5 MG/0.5 ML SUBCUTANEOUS PEN INJECTOR *Reorder from [facility] for eRx and Interaction Alerts* 07/14/2023 Active Spironolactone 25 MG Tablet Oral 07/14/2023 Active RABEprazole Sodium 20 MG Tablet Delayed Release Oral 07/14/2023 Active Mounjaro 7.5 MG/0.5ML Solution Pen-injector Subcutaneous *Reorder from [facility] for eRx and Interaction Alerts* [...] Insured Coverage Start Date Coverage End Date [facility] [address] J CARLOS LEWIS [id number] [place] MCKEON Spouse - patient is the spouse of the insured Medical (General) History Surgical History Surgery Date(Month/Year) Other 2 c-sections, wisdom teeth, gangli on cyst left wrist
--- OUTSIDE RECORDS SUMMARY | 2025-03-16 12:47 | XMS_ITS | Data Portability ---
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 Plan of Treatment Reminders Order Date Submit Date Provider Last Modified By Organization Details Last Modified Time Details Appointments None recorded. Lab RYAN (antinuclea r antibodies) screen, serum 2022 023 [facility], [address] [place] [address], [address] [place] [address], [address], 3 07:53:08 rf (rheumatoid factor), serum [address], [address] [place] [address], [address], [place], [address], 3 12:42:54 C-reactive protein, quantitativ e, serum or plasma [address], [address] [place] [address], [address] [place] [address], [address], 3 12:42:54 ESR (erythrocyt e sedimentati on rate), blood [address], [address], [address], 3 23:04:56 ccp (cyclic citrullinat ed peptide) igg, serum 2022 023 [facility], [address] [place] [address], [address] [place] [address], [address], 3 15:44:05 testosteron e, free + total, serum [address], [address] [place] [address] Rd, [address], [place], [address], 3 12:42:20 dhea-sulfat e, serum [address], [address] [place] [address], [address], [place], [address], 3 12:42:20 insulin, serum [address], [address] [place] [address], [facility], [place], [address], 3 12:42:20 CMP, serum or plasma [address], [address] [place] [address], [address] [place] [address], [address], 3 12:42:20 TSH + free T4, serum [address], [address] [place] [address], [address] [place] [address], [address], 3 12:42:20 Referral None recorded. Procedures None recorded. Surgeries None recorded. Imaging None recorded. Medication Orders None recorded. Patient TargetsNo targets recorded. Patient InstructionsNo instructions recorded. Reason for Referral None Reported. Results Created Date Observation Date Name Description Value Unit Range Abnormal Flag Note LastModifiedBy Organization Detail LastModifiedTime 04/19/20 22 04/18/2022 XR, ankle , 3 or more view No observ ation record ed. [id number] Not Available 08/18/2022 07:36:05 04/19/20 22 04/18/2022 XR, foot, 3 or more view No observ ation record ed. [id number] Not Available 08/18/2022 07:36:05 Result Notes None recorded. Problems Name Problem SNOMED Code Status Onset Date Resolution Date Notes Provider Name and Address Organization Details Recorded Time Sprain of foot 03238029 Active Not Available [facility] 3 07:30:27 Irregular periods 81415388 Active Not Available [facility] 3 07:30:28 Goiter 7991401 Active 2021 Not Available [facility] 3 07:30:27 Prediabete s 166870023 Active 2021 Not Available [facility] 3 07:30:28 Fatigue 50111238 Active 2021 Not Available [facility] 3 07:30:28 Weight gain 1227658 Active 2021 Not Available [facility] 3 07:30:28 Hypercorti solism 08948193 Active 2021 Not Available [facility] 3 07:30:27 Polycystic ovary syndrome 214448969 Active 2021 Not Available [facility] 3 07:30:27 Thyroid nodule 434377157 Active 2021 Not Available [facility] 3 07:30:27 Impaired fasting glycemia 951378699 Active 2021 Not Available [facility] 3 07:30:27 Sprain of right ankle 2295377086860 9105 Active 2021 Not Available [facility] 3 07:30:26 Sprain of left ankle 2386070807010 9105 Active 2021 Not Available [facility] 3 07:30:26 Pain of left ankle joint 1051839468639 9103 Active 2021 Not Available [facility] 3 07:30:26 Pain of joint of ankle 768684131 Active 2021 Not Available [facility] 3 07:30:27 Pain of joint of ankle 004403738 Active 2021 Not Available [facility] 3 07:30:27 Arthritis 1946517 Active 2022 Raissa Malave MD [address] [facility], [place] [address], [place], [address] , [facility] 3 12:40:32 Problem Notes None recorded. Procedures Surgical History Date Name Laterality Status Provider Name and Address Organization Details Recorded Time section completed Not Available Counts include 234 beds at the [facility] 08/18/2022 07:26:19 [place] [facility] completed Not Available [facility] 08/18/2022 07:26:19 excision of ganglion cyst completed Not Available Counts include 234 beds at the [facility] 08/18/2022 07:26:19 Imaging Results None recorded. Procedure Notes None recorded. Medical Equipment None Reported. Allergies Allergen ID Allergen Name Allergen Category Reaction Reaction Severity Criticality Documentation Date Start Date Code Code System Note Provider Name and Address Organization Details Recorded Time 53697 Reglan medicatio n itching Not available Not available 08/18/2022 9230 RxNorm Not Available Counts include 234 beds at the [facility] 3 07:35:58 Medications Name Sig Start Date Stop [...] Available Not Available Not Available Estarylla 0.25 mg-0.035 mg tablet TAKE 1 TABLET BY MOUTH [...] Available Not Available Vitals Date Recorded Body height Oxygen saturation Oxygen saturation in Arterial blood by Pulse oximetry Heart rate Body temperature Systolic And Diastolic Provider Name and Address Organization Details Last Updated DateTime 2 168.91 cm 97 % 97 % 80 /min 97.8 [degF] 110/80 mm[Hg] Not Available [facility] 3 07:27:55 Date Recorded Body height Body mass index (BMI) Body weight Body temperature Heart rate Systolic And Diastolic Provider Name and Address Organization Details Last Updated DateTime 3 168.91 cm 28.1 kg/m2 67674.4 1 g 97.5 [degF] 76 /min 125/79 mm[Hg] JOHNNY Neil [place] - [facility] 3 12:22:38 Date Recorded Body mass index (BMI) Body height Oxygen saturation Oxygen saturation in Arterial blood by Pulse oximetry Heart rate Body temperature Body weight Systolic And Diastolic Provider Name and Address Organization Details Last Updated DateTime 2 31.9 kg/m2 168.91 cm 97 % 97 % 80 /min 97.8 [degF] 46460.6 3 g 110/75 mm[Hg] Not Available [facility] 3 07:27:55 Date Recorded Body mass index (BMI) Body height Body weight Provider Name and Address Organization Details Last Updated DateTime 04/20/2022 30.8 kg/m2 168.91 cm 32621.92 g Not Available [facility] 08/18/2022 07:27:57 Date Recorded Body mass index (BMI) Body height Body weight Provider Name and Address Organization Details Last Updated DateTime 05/04/2022 31 kg/m2 168.91 cm 50686.51 g Not Available [facility] 08/18/2022 07:27:57 Social History Question Answer Notes LastModified by Capt[employer] ion Details LastModified Time Tobacco Smoking Status Never Smoker Not Available [facility] 08/18/2022 07:26:03 What Is Your Level Of Caffeine Consumption? None [id number] Information not available 08/18/2022 In The 14 Days Before Symptom Onset, Have You Had Close Contact With A Laboratory-confirm ed COVID-19 While That Case Was Ill? No [id number] Information not available 08/18/2022 In The 14 Days Before Symptom Onset, Have You Had Close Contact With A Person Who Is Under Investigation For COVID-19 While That Person Was Ill? No [id number] Information not available 08/18/2022 What Type Of Diet Are You Following? REGULAR [id number] Information not available 08/18/2022 What Is Your Relationship Status? [id number] Information not available 08/18/2022 Have You Recently Traveled Abroad? No [id number] Information not available 08/18/2022 Do You Have Any Dietary Restrictions? No [id number] Information not available 08/18/2022 Sex: Female Functional Status Question Answer Note LastModified by Organizat ion Details LastModified Time Do you use any illicit or recreational drugs? No [id number] Information not available 08/18/2022 What is your level of alcohol consumption? Occasional [id number] Information not available 08/18/2022 Mental Status None recorded. Family History Nothing Reported. Medical History No medical history recorded. Gynecological HistoryNo gynecological history recorded. Obstetrics History GPAL:G 0 P 0 0 0 0 Past Encounters Encounter ID Performer Location Encounter Start Date Encounter Closed Date Diagnosis/Indication Diagnosis SNOMED-CT Code Diagnosis ICD10 Code Diagnosis IMO Codes Diagnosis Note [id number] [facility] [address] [place] [address] 07/31/2021 00:00:00 07/31/2021 18:32:20 [id number] [facility] [address] [place] [address] 09/11/2021 00:00:00 09/11/2021 11:49:04 [id number] [facility] [address] [place] [id number] 03/09/2022 00:00:00 03/09/2022 11:36:46 [id number] Lopez Zaragoza MD [facility] [address] [address] 04/20/2022 00:00:00 04/20/2022 09:57:02 [id number] Lopez Zaragoza MD [facility] [address] [address] 05/04/2022 00:00:00 05/04/2022 10:51:10 [id number] Raissa Malave MD [facility] [address] [place] [id number] 09/23/2022 12:07:44 09/23/2022 12:47:02 Polycystic ovary syndrome 241435806 E28.2 Patient cycles regulated on control. She has high testostero ne and evidence of hair thinning/l oss and oily skin. She struggles to tolerate higher doses of spironolac tone but aware the effective dose for testostero ne blockade is 100 mg daily. She is aware she can split her dosing and take 25 mg with breakfast/ 24 mg with lunch and 25 mg with dinner and slowly titrate to that range up to 100 mg daily. Continue on mounjaro 7.5 mg once weekly as she has lost over 50 pounds since last year. She is tolerating therapy well. Has mild nausea since going up to 7.5 mg dose but aware to reach out if any new concerns or persistent symptoms. Arthritis 8384148 M19.90 Will send for repeat RYAN with specific antibodies along with rheumatoid screening to assess for any evidence of autoimmune disease. She had recent dx of pleurisy. Spent up to 28 minutes preparing to see the patient (eg, review of tests), obtaining and/or reviewing separately obtained history, performing a medically appropriat e examinatio n and evaluation , counseling and educating the patient, ordering medication s, tests, along with documentin g clinical informatio n in the electronic health record, independen tly interpreti ng results and communicat ing results to the patient. RTC in 6 months. Patient was provided a handwritte n lab order which contains our fax number. If she chooses to go outside of the [facility] system to obtain labwork she was advised to provide our fax number and my informatio n to the lab she will be obtaining labwork from in order to have her labs properly forwarded over for me to review so there is no loss of follow up due to use of outside network. She was also advised to contact our clinic informing us that she has completed her labwork so we are aware we will need to reach out to the appropriat e laboratory to request her results be forwarded to us so I might have the ability to review and make further medical decision making in her case. She voiced understand ing. Health Concerns Section Related Observation LastModified by Organization Detai ls LastModified Time None Recorded Concern Status LastModified by Organization Details LastModified Time None Recorded Advance Directives Directive None Recorded Payers Insurance Date Sequence Insurance Name Policy Number Policy Medley Covered Member ID Medley Member ID Guarantor Name 03/04/2023 1 [facility] [id number] Yareli Edouard [id number] Yareli Edouard Notes Date Note Type Note Provider Name and Address Organization Details Recorded Time 09/23/2022 text/html ROS as noted in the HPI 36 yo female comes in for follow up in management of [...] uU/mlA1c of 4.5% Raissa Malave MD [address] [facility], [place] [address], [place], [address], [facility] [employer] 09/23/2022 13:29:25 OBGyn Episode No OBEpisode recorded.
--- NOTE | 2025-03-16 12:51 | ED.URI ---
HPI - URI/Sore Throat General Chief Complaint: Upper Respiratory Infection Stated Complaint: cold/flu Time Seen by Provider: 03/16/25 12:51 Source: patient and RN notes reviewed Mode of arrival: ambulatory Limitations: no limitations History of Present Illness HPI Narrative: 39 y/o female presented for c/o cough, nasal congestion and drainage, bilateral ear pressure, sore throat, headache. Onset one week. Taking nyquil, dayquil and tylenol for symptoms. denies sob,wheezing, vomiting or lethargy. MD elicited complaint: cough Related Data Home Medications ?Medication ?Instructions ?Recorded ?Confirmed ?Last Taken ?Type ropinirole 0.5 mg tablet mg 03/16/25 Unknown History spironolactone 50 mg tablet mg 03/16/25 Unknown History Allergies Allergy/AdvReac Type Severity Reaction Status Date / Time metoclopramide Allergy Severe swelling Verified 03/16/25 12:55 in hands and face clavulanic acid AdvReac Mild Nausea Verified 03/16/25 12:55 Review of Systems Review of Systems: CONSTITUTIONAL: Endorses malaise, body aches, denies chills, sweats, fever EYES: Denies visual changes, redness, or discharge ENT: Reports rhinorrhea, congestion, sinus pain, otalgia, sore throat CARDIOVASCULAR: Denies chest pain, palpitations, edema RESPIRATORY: Reports cough, post nasal drainage. Denies dyspnea GASTROINTESTINAL: Denies abdominal pain, vomiting, diarrhea SKIN: Denies rash NEUROLOGIC: reports headache PMFSH Past Medical History Medical History BMI 23.0-23.9, adult Nausea Epigastric pain Herpes zoster Hallux valgus of right foot Rheumatoid arthritis involving ankle Light headedness Chronic headaches GERD (gastroesophageal reflux disease) Anxiety Anxiety and depression Bipolar 2 disorder Surgical History Surgical History Previous section x2, 2007,2010 S/P wisdom tooth extraction Family History Family History Grandparent Diabetes mellitus Hypertension Mother Family history of rheumatoid arthritis Father Family history of coronary artery disease, Onset Age: 47 Acute myocardial infarction Sibling No problems noted. 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 EYES: conjunctivae clear ENT: Mucous membranes moist. TM pearly valle with dull light reflex bilaterally; no tragal tenderness. Oropharynx not erythematous without lesions or exudate, no drooling, no hoarseness, no trismus, uvula midline. No tripod positioning, muffled voice, soft palate or pharyngeal wall bulging NECK: Supple. 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 Clear to auscultation, breath sounds equal. No wheezing, rhonchi, rales, or stridor. No respiratory distress, speaks in full sentences. HEART: Regular rate and rhythm. No murmur heard. SKIN: Warm, dry, no rash. NEURO: Alert and oriented x3. PSYCH: Normal mood and affect Course Course Emergency Course: Patient is aware of diagnosis, understands and agrees to treatment plan. Anticipatory guidance given. Patient agrees to follow-up as directed and is aware of reasons to seek care at the emergency department. Portions of this record may have been created with voice recognition software Level of Care: Express Care Visit Vital Signs Vital signs: Vital Signs Temperature 97.5 F L 03/16/25 12:46 Pulse Rate 101 H 03/16/25 12:46 Respiratory Rate 16 03/16/25 12:46 Blood Pressure 118/76 03/16/25 12:46 Pulse Oximetry 99 03/16/25 12:46 Oxygen Delivery Room Air 03/16/25 12:46 Temperature 97.5 F L 03/16/25 12:46 Pulse Rate 101 H 03/16/25 12:46 Respiratory Rate 16 03/16/25 12:46 Blood Pressure 118/76 03/16/25 12:46 Pulse Oximetry 99 03/16/25 12:46 Oxygen Delivery Room Air 03/16/25 12:46 reviewed MDM - URI/Sore Throat MDM Narrative Medical decision making narrative: Discussed physical exam findings and reviewed RX. Advised supportive measures and signs/symptoms to go to the ER. Pt is appropriate for outpt treatment and f/u. Differential Diagnosis Differential diagnosis: Likely upper respiratory infection, sinusitis, viral infection, bronchitis and pharyngitis Lab Data Labs: Lab Results 03/16/25 03/16/25 Range/Units 13:02 13:04 POC Influenza A Ag Negative (Negative) POC Influenza B Ag Negative (Negative) POC SARS CoV-2 Ag Negative (Negative) POC Grp A Strep Screen Negative (Negative) Discharge Plan Discharge Clinical Impression: Upper respiratory infection Patient Disposition: Home Condition: Stable Instructions: Antibiotic Form, Upper Respiratory Infection (ED) Additional Instructions: Rapid strep swab was negative today You will be notified in a few days if the culture comes back positive for strep, and appropriate antibiotics will be called in at that time. if symptoms are due to a viral illness, it is not treated with antibiotics. Viral symptoms can be present for up to 10-14 days. Recommendations: Flonase spray and Zyrtec for sinus congestion Cough syrup may cause drowsiness; avoid driving or take it at night time. Tylenol every 8 hours as needed for pain/fever Soft foods, cool liquids, warm tea. Gargle with warm saltwater twice a day. Chloraseptic spray and throat lozenges. Rest and stay hydrated. --Follow up with your PCP --Go to the ER immediately if you cannot swallow your saliva, trouble breathing/wheezing, throat swelling, pain is persistent and severe Patient Language: Malagasy Prescriptions: New benzonatate 200 mg capsule 200 mg PO TID PRN (Reason: cough) Qty: 20 0RF prednisone 20 mg tablet 40 mg PO DAILY 5 Days Qty: 10 0RF doxycycline hyclate 100 mg tablet 100 mg PO BID 5 Days Qty: 10 0RF No Action ropinirole 0.5 mg tablet spironolactone 50 mg tablet buspirone 15 mg tablet 15 mg PO BID Qty: 60 6RF rabeprazole [AcipHex] 20 mg tablet,delayed release (DR/EC) 20 mg PO BID Qty: 180 1RF fluoxetine 40 mg capsule 40 mg PO DAILY Qty: 90 1RF fluoxetine 20 mg capsule 20 mg PO DAILY Qty: 90 1RF quetiapine 25 mg tablet See Rx Instructions .ROUTE .COMPLEX Qty: 90 1RF Dose Instruction: TAKE 1 TABLET BY MOUTH EVERY DAY AT BEDTIME Rx Instructions: TAKE 1 TABLET BY MOUTH EVERY DAY AT BEDTIME Wegovy 0.25 mg/0.5 mL pen injector 0.25 mg subcut WEEKLY Qty: 2 0RF Rx Instructions: administer weeks 1 through 4 of therapy Follow-up/Referrals: Jamaal Marquez DO [Primary Care Provider, Internal Medicine] Stand Alone Forms: Work/School Release IP Time of Disposition: 13:16
[2025-03-16 13:04] LABS: EDSTREPNEGPOS1 Negative (Negative)
[2025-03-16 13:05] LABS: EDCOVIDSCREEN Negative (Negative); EDINFLUASCREEN Negative (Negative); EDINFLUBSCREEN Negative (Negative)
== END 2025-03-16 13:21 | disposition home or self-care (01) ==
PROVIDERS: Emergency Provider Nurse Practitioner Family; PCP Internal Medicine
DX: J06.9 Acute upper respiratory infection, unspecified (principal); Z20.822 Contact with and (suspected) exposure to COVID-19; K21.9 Gastro-esophageal reflux disease without esophagitis; F31.81 Bipolar II disorder; F41.9 Anxiety disorder, unspecified; M06.9 Rheumatoid arthritis, unspecified
CPT/HCPCS: 87081; 87426; 87804; 87880; 99213; G0463